=== PATIENT | female | born 1975 | race American Indian/Alaskan Native ===

== ENCOUNTER 2019-04-09 10:56 | Outpatient (CLI) | payer BC ==
[2019-04-09 11:12] VITALS: BP 127/74
[2019-04-09] MEDS ORDERED: LACTATED RINGERS 500 ML IV ONE (11:14)
[2019-04-09 11:33] LABS: Bilirubin,Urine NEG (Negative); Blood,Urine SM (Negative); Color,Urine Straw (Yellow); Mucus,Urine FEW /HPF; Protein,Urine <15 mg/dL mg/dL (Negative); RBC,Urine < 1.0 /HPF (0.0-6.0); Urobilinogen,Urine < 2.0 mg/dL (<2.0); WBC,Urine < 1.0 /HPF (0.0-6.0)
== END 2019-04-09 12:59 | disposition home or self-care (01) ==
LOC: TRG 10:56
PROVIDERS: ATTEND Obstetrics & Gynecology
DX: O26.892 Other specified pregnancy related conditions, second trimester (principal); R10.9 Unspecified abdominal pain; M54.9 Dorsalgia, unspecified; O09.522 Supervision of elderly multigravida, second trimester; Z3A.26 26 weeks gestation of pregnancy
CPT/HCPCS: 81001; 87086; J7120; 96360

== ENCOUNTER 2019-06-28 12:09 | Outpatient (CLI) | payer BC ==
[2019-06-28 12:41] LABS: Bacteria,Urine 1+ /HPF (Negative); Bilirubin,Urine NEG (Negative); Blood,Urine NEG (Negative); Color,Urine Straw (Yellow); Mucus,Urine FEW /HPF; Protein,Urine <15 mg/dL mg/dL (Negative); Urobilinogen,Urine < 2.0 mg/dL (<2.0); WBC,Urine < 1.0 /HPF (0.0-6.0)
[2019-06-28 12:44] LABS: RBC,Urine < 1.0 /HPF (0.0-6.0)
[2019-06-28] MEDS ORDERED: NITRAZINE (URINE TESTING PAPER) MC ONE (13:00)
[2019-06-28 13:21] LABS: Hematocrit 35.5 % (30.3-42.9); Hemoglobin 11.9 gm/dl (10.1-14.3); Mean Corpuscular HGB Conc 33 % (30-34); Mean Corpuscular Volume 86 fl (79-97); Platelet Count 194 K/mm3 (140-440); Red Blood Count 4.13 M/mm3 (3.65-5.03); Red Cell Distribution Width 14.7 % (13.2-15.2)
[2019-06-28 13:44] LABS: Alanine Aminotransferase 22 units/L (7-56); Uric Acid 3.9 mg/dL (3.5-7.6)
[2019-06-28 13:59] VITALS: BP 131/79
== END 2019-06-28 14:11 | disposition home or self-care (01) ==
LOC: TRG 12:09
PROVIDERS: ATTEND Obstetrics & Gynecology
DX: O47.1 False labor at or after 37 completed weeks of gestation (principal); Z3A.38 38 weeks gestation of pregnancy
CPT/HCPCS: 36415; 59025; 81001; 82565; 83615; 84450; 84460; 84550; 85027

== ENCOUNTER 2019-06-28 17:07 | Inpatient (IN) | payer BC ==
[2019-06-28] MEDS ORDERED: TERBUTALINE 1 MG/1 ML INJ SUB-Q PRN (17:37)
[2019-06-28] MEDS ORDERED: NALOXONE 0.4 MG/1 ML INJ IV PRN (17:37)
[2019-06-28] MEDS ORDERED: ePHEDrine SULFATE 50 MG/1 ML INJ IV PRN (17:37)
[2019-06-28] MEDS ORDERED: TERBUTALINE 1 MG/1 ML INJ IVP PRN (17:37)
[2019-06-28] MEDS ORDERED: ONDANSETRON 4 MG/2 ML INJ IV PRN (17:37)
[2019-06-28] MEDS ORDERED: MINERAL OIL 30 ML ORAL LIQD PO PRN (17:37)
[2019-06-28] MEDS ORDERED: BUTORPHANOL 2 MG/1 ML INJ IV PRN (17:37)
[2019-06-28] MEDS ORDERED: OXYTOCIN DRIP 30 UNITS/500 ML BAG IV SCH (18:00)
[2019-06-28] MEDS ORDERED: OXYTOCIN 20 UNIT/1000ML DRIP 20 UNITS/1,000 ML BAG IV SCH (18:00)
[2019-06-28] MEDS ORDERED: LIDOCAINE (2%) 20 MG/1 ML VIAL 20 ML MDV INFILTRATI ONE (18:00)
[2019-06-28] MEDS ORDERED: DINOPROSTONE 10 MG VAG SUPP VG ONE (18:00)
[2019-06-28] MEDS ORDERED: hydrALAZINE 20 MG/1 ML INJ IV PRN (18:27)
[2019-06-28] MEDS ORDERED: ACETAMINOPHEN 325 MG TAB PO PRN (18:27)
[2019-06-28] MEDS ORDERED: LACTATED RINGERS 1,000 ML IV SCH (19:00)
--- NOTE | 2019-06-28 20:51 | History and Physical Report ---
History of Present Illness Date of examination: 06/28/19 Chief complaint: Patient presents for IOL due to GHTN, she was noted to have elevated BP's at [facility] on 08/27/2018. She presented to the office today for LUCIO and noted to have BP's 150-160/90's therefore to meets criteria for GHTN management. History of present illness: Past History : 2 Term Births: 0 Premature Births: 0 Living Children: 0 Para: 0 Mult. Births: 0 Prev : 0 Prev. attempt? 0 Aborta: 1 Elect. Ab: 1 Spont. Ab: 0 Ectopics: 0 # 1 Delivery date: 2000 Weeks Gestation: 4 Comments: D&C Past Medical History: fibroids heart murmur, hx. not heard today on examination Past Surgical History: D&C 1999 breast implants 2007 lipo 2008 wisdom teeth 2004 Past Medical History Surgery (Non-administrator of home health): D&C 1999 breast implants 2007 lipo 2007 wisdom teeth 2004 Abnormal PAP: negative JOHANNE Exposure: negative Infertility: negative Uterine Anomaly: negative Uterine Surgery (not C/S): negative Other Gynecologic Problems: negative Family Hx: mom-diabetes, htn dad-diabetes mgm- diabetes pgm-diabetes Social Hx: . lives with works as accountant bookkeeper denies tobacco/drugs. ETOH early Infection History Hx of STD: none HIV Risk Eval: low risk Hepatitis B Risk Eval: low risk Personal hx. of genital herpes: no Partner hx. of genital herpes: no Rash, Viral, or Febrile illness since last LMP? no Varicella/Chicken Pox Status: Unknown TB Risk: no Infection History Comments: will draw varicella with IOB appt Genetic History ADVANCED MATERNAL AGE Congenital Heart Defect: Mom: no Dad: no Rosana Disease: Mom: no Dad: no Thalassemia Mom: no Dad: no Neural Tube Defect Mom: no Dad: no Down's Syndrome Mom: no Dad: no Nixon-Sachs Mom: no Dad: no Sickle Cell Disease/Trait Mom: no Dad: no Hemophilia Mom: no Dad: no Muscular Dystrophy Mom: no Dad: no Cystic Fibrosis Mom: no Dad: no [place] Chorea Mom: no Dad: no Mental Retardation Mom: no Dad: no Fragile X Mom: no Dad: no Other Genetic/Chromosomal Disorder Mom: no Dad: no Child w/other defect Mom: no Dad: no Comments/Counseling: [facility] referral sent Enviromental Exposures Enviromental Exposures Reviewed Xray Exposure: no Medication, drug, or alcohol use since LMP: no Chemical/Other Exposure: no Exposure to Cat Liter: no Hx of Parvovirus (Fifth Disease): no Occupational Exposure to Children: none Active Medications (reviewed today): None Current Allergies (reviewed today): No known allergies Past History - Obstetrical History Expected Date of Delivery: 07/11/19 Actual Gestation: 38 Week(s) 1 Day(s) : 2 Medications and Allergies Allergies Allergy/AdvReac Type Severity Reaction Status Date / Time No Known Allergies Allergy Verified 06/28/19 12:28 Active Meds: Active Medications Acetaminophen (Tylenol) 650 mg PO Q6H PRN PRN Reason: Pain, Mild (1-3) Butorphanol Tartrate (Stadol) 1 mg IV Q2H PRN PRN Reason: Pain, Moderate (4-6) Ephedrine Sulfate (Ephedrine Sulfate) 10 mg IV Q2M PRN PRN Reason: Hypotension Hydralazine HCl (Apresoline) 5 mg IV ONCE PRN PRN Reason: Hypertension Oxytocin/Sodium Chloride (Pitocin/Ns 20 Unit/1000ml Drip) 20 units in 1,000 mls @ 125 mls/hr IV DIRECT LIANE Oxytocin/Sodium Chloride (Pitocin/Ns 30 Unit/500ml) 30 units in 500 mls @ 1 mls/hr IV TITR LIANE; Protocol Lactated Ringer's (Lactated Ringers) 1,000 mls @ 125 mls/hr IV DIRECT LIANE Lactated Ringer's (Lactated Ringers) 1,000 mls @ 125 mls/hr IV DIRECT LIANE Mineral Oil (Mineral Oil) 30 ml PO QHS PRN PRN Reason: Constipation Naloxone HCl (Naloxone) 0.1 mg IV Q2MIN PRN PRN Reason: Res Rate </= 8 or 02 SAT < 92% Ondansetron HCl (Zofran) 4 mg IV Q8H PRN PRN Reason: Nausea And Vomiting Terbutaline Sulfate (Brethine) 0.25 mg SUB-Q ONCE PRN PRN Reason: Hyperstimulation/Hypertonicity Terbutaline Sulfate (Brethine) 0.25 mg IVP ONCE PRN PRN Reason: Hyperstimulation/Hypertonicity Review of Systems All systems: negative - Vital Signs Vital signs: Vital Signs Pulse Pulse Ox 104 H 94 06/28/19 18:01 06/28/19 18:01 Temp Pulse Resp BP Pulse Ox 98.3 F 90 18 123/73 97 06/28/19 19:35 06/28/19 20:46 06/28/19 19:35 06/28/19 19:35 06/28/19 20:46 - Physical Exam Breasts: Positive: deferred Cardiovascular: Regular rate Lungs: Positive: Clear to auscultation, Normal air movement Abdomen: Positive: soft. Negative: tenderness Uterus: Positive: enlarged. Negative: tender - Obstetrical FHR: category 1 Uterine Contraction Monitor Mode: External Cervical Dilatation: 0 Cervical Effacement Percentage: 0 station: -3 per RN, cervidil placed at 8p Uterine Contraction Frequency (min): 2-3 Uterine Contraction Pattern: Regular Results All other labs normal. Assessment and Plan - Patient Problems (1) 38 weeks gestation of Current Visit: Yes Status: Acute (2) Gestational hypertension without significant proteinuria in third trimester Current Visit: Yes Status: Acute Plan to address problem: Cephalic by US at [facility] on 06/26/19 with EFW 7lbs GHTN and treatment explained. Serial IOL discussed, questions were encouraged and answered She voiced understanding and agrees with POC (3) AMA (advanced maternal age) multigravida 35+ Current Visit: Yes Status: Acute Qualifiers: Trimester: third trimester Qualified Code(s): O09.523 - Supervision of elderly multigravida, third trimester
--- NOTE | 2019-06-29 06:55 | Progress Note ---
Assessment and Plan 44 y.o. @ 38 wks here for IOL d/t gHTN. Cervical exam /2. Cervidil pulled. Will allow AM care and start pitocin per protocol. Dr. Calabrese aware, will consult with Dr. Rivera. Subjective - Subjective Date of service: 06/29/19 (Pt sleeping, IOL) Principal diagnosis: IUP 38 wks @ IOL for gHTN Objective - Vital Signs Vital Signs: Vital Signs - 12hr 06/28/19 06/28/19 06/28/19 18:56 19:01 19:04 Temperature Pulse Rate 91 H 94 H 88 Respiratory Rate Blood Pressure 118/71 Blood Pressure [Right] O2 Sat by Pulse 98 97 Oximetry 06/28/19 06/28/19 06/28/19 19:06 19:11 19:16 Temperature Pulse Rate 86 92 H 95 H Respiratory Rate Blood Pressure Blood Pressure [Right] O2 Sat by Pulse 97 97 97 Oximetry 06/28/19 06/28/19 06/28/19 19:20 19:21 19:26 Temperature Pulse Rate 104 H 94 H 94 H Respiratory Rate Blood Pressure Blood Pressure [Right] O2 Sat by Pulse 83 L 97 97 Oximetry 06/28/19 06/28/19 06/28/19 19:31 19:35 19:36 Temperature 98.3 F Pulse Rate 95 H 95 H 97 H Respiratory 18 Rate Blood Pressure 123/73 Blood Pressure 123/73 [Right] O2 Sat by Pulse 97 98 98 Oximetry 06/28/19 06/28/19 06/28/19 19:41 19:46 20:36 Temperature Pulse Rate 86 88 93 H Respiratory Rate Blood Pressure Blood Pressure [Right] O2 Sat by Pulse 99 98 97 Oximetry 06/28/19 06/28/19 06/28/19 20:40 20:46 20:50 Temperature Pulse Rate 91 H 90 95 H Respiratory Rate Blood Pressure Blood Pressure [Right] O2 Sat by Pulse 98 97 97 Oximetry 06/28/19 06/28/19 06/28/19 20:55 21:00 21:06 Temperature Pulse Rate 88 93 H 92 H Respiratory Rate Blood Pressure 119/71 Blood Pressure [Right] O2 Sat by Pulse 97 97 96 Oximetry 06/28/19 06/28/19 06/28/19 21:10 21:15 21:20 Temperature Pulse Rate 86 89 86 Respiratory Rate Blood Pressure Blood Pressure [Right] O2 Sat by Pulse 96 96 97 Oximetry 06/28/19 06/28/19 06/28/19 21:25 21:30 21:35 Temperature Pulse Rate 88 89 86 Respiratory Rate Blood Pressure Blood Pressure [Right] O2 Sat by Pulse 98 96 96 Oximetry 06/28/19 06/28/19 06/28/19 21:40 21:45 21:50 Temperature Pulse Rate 87 87 87 Respiratory Rate Blood Pressure Blood Pressure [Right] O2 Sat by Pulse 97 96 96 Oximetry 06/28/19 06/28/19 06/28/19 21:55 22:00 22:01 Temperature Pulse Rate 83 87 86 Respiratory Rate Blood Pressure 104/58 Blood Pressure [Right] O2 Sat by Pulse 96 96 Oximetry 06/28/19 06/28/19 06/28/19 22:05 22:06 22:10 Temperature Pulse Rate 88 96 H 73 Respiratory Rate Blood Pressure Blood Pressure [Right] O2 Sat by Pulse 98 88 98 Oximetry 06/28/19 06/28/19 06/28/19 22:31 22:37 22:41 Temperature Pulse Rate 93 H 83 95 H Respiratory Rate Blood Pressure Blood Pressure [Right] O2 Sat by Pulse 96 97 96 Oximetry 06/28/19 06/28/19 06/28/19 22:47 22:52 22:57 Temperature Pulse Rate 83 92 H 84 Respiratory Rate Blood Pressure Blood Pressure [Right] O2 Sat by Pulse 96 96 96 Oximetry 06/28/19 06/28/19 06/28/19 23:01 23:02 23:07 Temperature Pulse Rate 81 80 88 Respiratory Rate Blood Pressure 109/59 100/56 Blood Pressure [Right] O2 Sat by Pulse 97 97 Oximetry 06/28/19 06/28/19 06/28/19 23:11 23:16 23:21 Temperature Pulse Rate 83 85 85 Respiratory Rate Blood Pressure Blood Pressure [Right] O2 Sat by Pulse 98 97 97 Oximetry 06/28/19 06/28/19 06/28/19 23:26 23:32 23:37 Temperature Pulse Rate 77 86 84 Respiratory Rate Blood Pressure Blood Pressure [Right] O2 Sat by Pulse 97 97 95 Oximetry 06/28/19 06/28/19 06/28/19 23:41 23:46 23:52 Temperature Pulse Rate 89 86 86 Respiratory Rate Blood Pressure Blood Pressure [Right] O2 Sat by Pulse 96 97 96 Oximetry 06/28/19 06/29/19 06/29/19 23:56 00:00 00:01 Temperature Pulse Rate 85 78 81 Respiratory Rate Blood Pressure 101/58 99/53 Blood Pressure [Right] O2 Sat by Pulse 97 97 Oximetry 06/29/19 06/29/19 06/29/19 00:07 00:11 00:17 Temperature Pulse Rate 80 77 83 Respiratory Rate Blood Pressure Blood Pressure [Right] O2 Sat by Pulse 96 97 97 Oximetry 06/29/19 06/29/19 06/29/19 00:22 00:26 00:31 Temperature Pulse Rate 82 80 80 Respiratory Rate Blood Pressure Blood Pressure [Right] O2 Sat by Pulse 97 97 97 Oximetry 06/29/19 06/29/19 06/29/19 00:37 00:41 00:47 Temperature Pulse Rate 83 83 81 Respiratory Rate Blood Pressure Blood Pressure [Right] O2 Sat by Pulse 96 97 98 Oximetry 06/29/19 06/29/19 06/29/19 00:52 00:57 01:00 Temperature Pulse Rate 81 89 73 Respiratory Rate Blood Pressure 113/69 Blood Pressure [Right] O2 Sat by Pulse 97 99 Oximetry 06/29/19 06/29/19 06/29/19 01:02 01:03 01:07 Temperature Pulse Rate 75 79 84 Respiratory Rate Blood Pressure Blood Pressure [Right] O2 Sat by Pulse 98 93 95 Oximetry 06/29/19 06/29/19 06/29/19 01:11 01:17 01:21 Temperature Pulse Rate 83 78 91 H Respiratory Rate Blood Pressure Blood Pressure [Right] O2 Sat by Pulse 96 97 93 Oximetry 06/29/19 06/29/19 06/29/19 01:22 01:26 01:28 Temperature Pulse Rate 80 78 74 Respiratory Rate Blood Pressure Blood Pressure [Right] O2 Sat by Pulse 98 97 93 Oximetry 06/29/19 06/29/19 06/29/19 01:31 01:35 01:37 Temperature Pulse Rate 81 74 104 H Respiratory Rate Blood Pressure Blood Pressure [Right] O2 Sat by Pulse 99 92 94 Oximetry 06/29/19 06/29/19 06/29/19 01:42 01:46 01:47 Temperature Pulse Rate 78 72 82 Respiratory Rate Blood Pressure Blood Pressure [Right] O2 Sat by Pulse 98 93 98 Oximetry 06/29/19 06/29/19 06/29/19 01:51 01:57 02:00 Temperature Pulse Rate 83 81 75 Respiratory Rate Blood Pressure 109/58 Blood Pressure [Right] O2 Sat by Pulse 97 96 Oximetry 06/29/19 06/29/19 06/29/19 02:02 02:06 02:12 Temperature Pulse Rate 77 78 96 H Respiratory Rate Blood Pressure Blood Pressure [Right] O2 Sat by Pulse 99 97 98 Oximetry 06/29/19 06/29/19 06/29/19 02:16 02:22 02:27 Temperature Pulse Rate 85 75 78 Respiratory Rate Blood Pressure Blood Pressure [Right] O2 Sat by Pulse 98 97 97 Oximetry 06/29/19 06/29/19 06/29/19 02:32 02:37 02:42 Temperature Pulse Rate 79 80 76 Respiratory Rate Blood Pressure Blood Pressure [Right] O2 Sat by Pulse 97 97 97 Oximetry 06/29/19 06/29/19 06/29/19 02:52 02:53 02:58 Temperature Pulse Rate 95 H 93 H 86 Respiratory Rate Blood Pressure Blood Pressure [Right] O2 Sat by Pulse 75 L 98 97 Oximetry 06/29/19 06/29/19 06/29/19 03:02 03:03 03:07 Temperature Pulse Rate 78 82 81 Respiratory Rate Blood Pressure 106/55 Blood Pressure [Right] O2 Sat by Pulse 98 98 Oximetry 06/29/19 06/29/19 06/29/19 03:13 03:18 03:23 Temperature Pulse Rate 90 85 86 Respiratory Rate Blood Pressure Blood Pressure [Right] O2 Sat by Pulse 97 97 99 Oximetry 06/29/19 06/29/19 06/29/19 03:28 03:33 03:38 Temperature Pulse Rate 86 76 79 Respiratory Rate Blood Pressure Blood Pressure [Right] O2 Sat by Pulse 97 98 96 Oximetry 06/29/19 06/29/19 06/29/19 03:43 03:48 03:53 Temperature Pulse Rate 80 84 82 Respiratory Rate Blood Pressure Blood Pressure [Right] O2 Sat by Pulse 98 95 96 Oximetry 06/29/19 06/29/19 06/29/19 03:58 04:00 04:03 Temperature Pulse Rate 77 78 89 Respiratory Rate Blood Pressure 122/71 Blood Pressure [Right] O2 Sat by Pulse 98 96 Oximetry 06/29/19 06/29/19 06/29/19 04:08 04:13 04:18 Temperature Pulse Rate 84 77 81 Respiratory Rate Blood Pressure Blood Pressure [Right] O2 Sat by Pulse 96 96 96 Oximetry 06/29/19 06/29/19 06/29/19 04:23 04:28 04:33 Temperature Pulse Rate 98 H 79 80 Respiratory Rate Blood Pressure Blood Pressure [Right] O2 Sat by Pulse 97 96 96 Oximetry 06/29/19 06/29/19 06/29/19 04:38 04:43 04:48 Temperature Pulse Rate 80 78 79 Respiratory Rate Blood Pressure Blood Pressure [Right] O2 Sat by Pulse 96 96 96 Oximetry 06/29/19 06/29/19 06/29/19 04:53 04:58 05:01 Temperature Pulse Rate 78 81 79 Respiratory Rate Blood Pressure 106/62 Blood Pressure [Right] O2 Sat by Pulse 96 96 Oximetry 06/29/19 06/29/19 06/29/19 05:03 05:08 05:13 Temperature Pulse Rate 86 80 83 Respiratory Rate Blood Pressure Blood Pressure [Right] O2 Sat by Pulse 97 97 99 Oximetry 06/29/19 06/29/19 06/29/19 05:18 05:23 05:27 Temperature Pulse Rate 75 78 85 Respiratory Rate Blood Pressure Blood Pressure [Right] O2 Sat by Pulse 97 98 92 Oximetry 06/29/19 06/29/19 06/29/19 05:28 05:33 05:38 Temperature Pulse Rate 78 79 85 Respiratory Rate Blood Pressure Blood Pressure [Right] O2 Sat by Pulse 98 97 100 Oximetry 06/29/19 06/29/19 06/29/19 05:43 05:48 05:53 Temperature Pulse Rate 73 80 79 Respiratory Rate Blood Pressure Blood Pressure [Right] O2 Sat by Pulse 97 96 96 Oximetry 06/29/19 06/29/19 06/29/19 05:58 06:01 06:03 Temperature Pulse Rate 87 77 76 Respiratory Rate Blood Pressure 111/64 Blood Pressure [Right] O2 Sat by Pulse 95 96 Oximetry 06/29/19 06/29/19 06/29/19 06:08 06:13 06:17 Temperature Pulse Rate 81 83 79 Respiratory Rate Blood Pressure Blood Pressure [Right] O2 Sat by Pulse 96 97 97 Oximetry 06/29/19 06/29/19 06/29/19 06:23 06:28 06:33 Temperature Pulse Rate 81 77 84 Respiratory Rate Blood Pressure Blood Pressure [Right] O2 Sat by Pulse 97 97 96 Oximetry 06/29/19 06/29/19 06/29/19 06:38 06:43 06:48 Temperature Pulse Rate 83 84 81 Respiratory Rate Blood Pressure Blood Pressure [Right] O2 Sat by Pulse 96 98 100 Oximetry 06/29/19 06/29/19 06:49 06:53 Temperature Pulse Rate 83 90 Respiratory Rate Blood Pressure Blood Pressure [Right] O2 Sat by Pulse 88 98 Oximetry - Exam Breasts: deferred Cardiovascular: Regular rate Lungs: Normal air movement Abdomen: Present: normal appearance Vulva: both: normal FHR: category 1 Cervical Dilatation: 1 Cervical Effacement Percentage: 70 station: -2 Uterine Contraction Pattern: Irregular Uterine Tone Measurement Phase: Resting Uterine Contraction Intensity: Mild Extremities: edema (+2 to lower extremities) Deep Tendon Reflex Grade: Normal +2 - Labs Labs: Laboratory Results - last 24 hr 06/28/19 06/28/19 19:16 19:16 Syphilis IgG Antibody Non-reactive Blood Type A POSITIVE Antibody Screen Negative
[2019-06-29] MEDS: OXYTOCIN DRIP 30 UNITS/500 ML BAG IV SCH (09:56)
[2019-06-29] MEDS: LACTATED RINGERS 1,000 ML IV SCH ×2 (10:05→19:49)
--- NOTE | 2019-06-29 12:31 | Progress Note ---
Assessment and Plan 44 y.o. IOL @ 38 wks for gHTN. Pt feeling some ctxs. Cervical exam /2. Pitocin at 12ml/hr. Continue IOL. Pitocin per protocol. Subjective - Subjective Date of service: 06/29/19 (Pt doing well) Principal diagnosis: IUP 38 wks @ IOL for gHTN Objective - Vital Signs Vital Signs: Vital Signs - 12hr 06/29/19 06/29/19 06/29/19 00:31 00:37 00:41 Pulse Rate 80 83 83 Blood Pressure O2 Sat by Pulse 97 96 97 Oximetry 06/29/19 06/29/19 06/29/19 00:47 00:52 00:57 Pulse Rate 81 81 89 Blood Pressure O2 Sat by Pulse 98 97 99 Oximetry 06/29/19 06/29/19 06/29/19 01:00 01:02 01:03 Pulse Rate 73 75 79 Blood Pressure 113/69 O2 Sat by Pulse 98 93 Oximetry 06/29/19 06/29/19 06/29/19 01:07 01:11 01:17 Pulse Rate 84 83 78 Blood Pressure O2 Sat by Pulse 95 96 97 Oximetry 06/29/19 06/29/19 06/29/19 01:21 01:22 01:26 Pulse Rate 91 H 80 78 Blood Pressure O2 Sat by Pulse 93 98 97 Oximetry 06/29/19 06/29/19 06/29/19 01:28 01:31 01:35 Pulse Rate 74 81 74 Blood Pressure O2 Sat by Pulse 93 99 92 Oximetry 06/29/19 06/29/19 06/29/19 01:37 01:42 01:46 Pulse Rate 104 H 78 72 Blood Pressure O2 Sat by Pulse 94 98 93 Oximetry 06/29/19 06/29/19 06/29/19 01:47 01:51 01:57 Pulse Rate 82 83 81 Blood Pressure O2 Sat by Pulse 98 97 96 Oximetry 06/29/19 06/29/19 06/29/19 02:00 02:02 02:06 Pulse Rate 75 77 78 Blood Pressure 109/58 O2 Sat by Pulse 99 97 Oximetry 06/29/19 06/29/19 06/29/19 02:12 02:16 02:22 Pulse Rate 96 H 85 75 Blood Pressure O2 Sat by Pulse 98 98 97 Oximetry 1206/29/19 06/29/19 02:27 02:32 02:37 Pulse Rate 78 79 80 Blood Pressure O2 Sat by Pulse 97 97 97 Oximetry 06/29/19 06/29/19 06/29/19 02:42 02:52 02:53 Pulse Rate 76 95 H 93 H Blood Pressure O2 Sat by Pulse 97 75 L 98 Oximetry 06/29/19 06/29/19 06/29/19 02:58 03:02 03:03 Pulse Rate 86 78 82 Blood Pressure 106/55 O2 Sat by Pulse 97 98 Oximetry 06/29/19 06/29/19 06/29/19 03:07 03:13 03:18 Pulse Rate 81 90 85 Blood Pressure O2 Sat by Pulse 98 97 97 Oximetry 06/29/19 06/29/19 06/29/19 03:23 03:28 03:33 Pulse Rate 86 86 76 Blood Pressure O2 Sat by Pulse 99 97 98 Oximetry 06/29/19 06/29/19 06/29/19 03:38 03:43 03:48 Pulse Rate 79 80 84 Blood Pressure O2 Sat by Pulse 96 98 95 Oximetry 06/29/19 06/29/19 06/29/19 03:53 03:58 04:00 Pulse Rate 82 77 78 Blood Pressure 122/71 O2 Sat by Pulse 96 98 Oximetry 06/29/19 06/29/19 06/29/19 04:03 04:08 04:13 Pulse Rate 89 84 77 Blood Pressure O2 Sat by Pulse 96 96 96 Oximetry 06/29/19 06/29/19 06/29/19 04:18 04:23 04:28 Pulse Rate 81 98 H 79 Blood Pressure O2 Sat by Pulse 96 97 96 Oximetry 06/29/19 06/29/19 06/29/19 04:33 04:38 04:43 Pulse Rate 80 80 78 Blood Pressure O2 Sat by Pulse 96 96 96 Oximetry 06/29/19 06/29/19 06/29/19 04:48 04:53 04:58 Pulse Rate 79 78 81 Blood Pressure O2 Sat by Pulse 96 96 96 Oximetry 06/29/19 06/29/19 06/29/19 05:01 05:03 05:08 Pulse Rate 79 86 80 Blood Pressure 106/62 O2 Sat by Pulse 97 97 Oximetry 06/29/19 06/29/19 06/29/19 05:13 05:18 05:23 Pulse Rate 83 75 78 Blood Pressure O2 Sat by Pulse 99 97 98 Oximetry 06/29/19 06/29/19 06/29/19 05:27 05:28 05:33 Pulse Rate 85 78 79 Blood Pressure O2 Sat by Pulse 92 98 97 Oximetry 06/29/19 06/29/19 06/29/19 05:38 05:43 05:48 Pulse Rate 85 73 80 Blood Pressure O2 Sat by Pulse 100 97 96 Oximetry 06/29/19 06/29/19 06/29/19 05:53 05:58 06:01 Pulse Rate 79 87 77 Blood Pressure 111/64 O2 Sat by Pulse 96 95 Oximetry 06/29/19 06/29/19 06/29/19 06:03 06:08 06:13 Pulse Rate 76 81 83 Blood Pressure O2 Sat by Pulse 96 96 97 Oximetry 06/29/19 06/29/19 06/29/19 06:17 06:23 06:28 Pulse Rate 79 81 77 Blood Pressure O2 Sat by Pulse 97 97 97 Oximetry 06/29/19 06/29/19 06/29/19 06:33 06:38 06:43 Pulse Rate 84 83 84 Blood Pressure O2 Sat by Pulse 96 96 98 Oximetry 06/29/19 06/29/19 06/29/19 06:48 06:49 06:53 Pulse Rate 81 83 90 Blood Pressure O2 Sat by Pulse 100 88 98 Oximetry 06/29/19 06/29/19 06/29/19 06:58 07:01 07:03 Pulse Rate 80 80 76 Blood Pressure 118/74 O2 Sat by Pulse 97 99 Oximetry 06/29/19 06/29/19 06/29/19 07:08 07:13 07:18 Pulse Rate 82 85 85 Blood Pressure O2 Sat by Pulse 97 97 97 Oximetry 06/29/19 06/29/19 06/29/19 07:23 07:28 07:33 Pulse Rate 86 86 87 Blood Pressure O2 Sat by Pulse 99 96 99 Oximetry 06/29/19 06/29/19 06/29/19 07:38 07:43 07:46 Pulse Rate 82 85 91 H Blood Pressure O2 Sat by Pulse 99 97 91 Oximetry 06/29/19 06/29/19 06/29/19 07:48 07:53 08:16 Pulse Rate 85 90 88 Blood Pressure 123/76 O2 Sat by Pulse 97 98 Oximetry 06/29/19 06/29/19 06/29/19 10:18 10:19 10:24 Pulse Rate 93 H 98 H 96 H Blood Pressure 125/73 O2 Sat by Pulse 95 97 Oximetry 06/29/19 06/29/19 06/29/19 10:29 10:34 10:39 Pulse Rate 91 H 93 H 94 H Blood Pressure O2 Sat by Pulse 97 95 95 Oximetry 06/29/19 06/29/19 06/29/19 10:44 10:49 10:54 Pulse Rate 103 H 102 H 93 H Blood Pressure O2 Sat by Pulse 96 96 95 Oximetry 06/29/19 06/29/19 06/29/19 10:59 11:04 11:09 Pulse Rate 85 91 H 84 Blood Pressure O2 Sat by Pulse 95 95 95 Oximetry 06/29/19 06/29/19 06/29/19 11:14 11:15 11:19 Pulse Rate 87 93 H 91 H Blood Pressure O2 Sat by Pulse 95 94 95 Oximetry 06/29/19 06/29/19 06/29/19 11:24 11:29 11:34 Pulse Rate 94 H 93 H 99 H Blood Pressure O2 Sat by Pulse 97 96 96 Oximetry 06/29/19 06/29/19 06/29/19 11:39 11:44 11:49 Pulse Rate 94 H 92 H 90 Blood Pressure O2 Sat by Pulse 96 96 96 Oximetry 06/29/19 06/29/19 06/29/19 11:54 11:56 11:59 Pulse Rate 95 H 90 92 H Blood Pressure 127/74 O2 Sat by Pulse 95 96 Oximetry 06/29/19 06/29/19 06/29/19 12:04 12:09 12:14 Pulse Rate 92 H 95 H 94 H Blood Pressure O2 Sat by Pulse 96 97 97 Oximetry 06/29/19 06/29/19 06/29/19 12:18 12:19 12:24 Pulse Rate 91 H 89 90 Blood Pressure 120/77 O2 Sat by Pulse 96 95 Oximetry - Exam Abdomen: Present: normal appearance Vulva: both: normal Uterus: Present: normal FHR: category 1 Uterine Contraction Monitor Mode: External Cervical Dilatation: 1 Cervical Effacement Percentage: 70 station: -2 Uterine Contraction Pattern: Regular Uterine Tone Measurement Phase: Resting Uterine Contraction Intensity: Moderate Extremities: normal Deep Tendon Reflex Grade: Normal +2 - Labs Labs: Laboratory Results - last 24 hr 06/28/19 06/28/19 19:16 19:16 Syphilis IgG Antibody Non-reactive Blood Type A POSITIVE Antibody Screen Negative
--- NOTE | 2019-06-29 16:17 | Progress Note ---
Assessment and Plan A" 44 y.o. @ 38+ wks, IOL due to gHTN. Pt would like another cervidil placed. P:Turn off pitocin at 5pm. Let pt eat dinner. Addtional cervidil after dinner. Subjective - Subjective Date of service: 06/29/19 (Feeling well. Not really feeling a lot of contractions. ) Principal diagnosis: IUP 38 wks @ IOL for gHTN Objective - Vital Signs Vital Signs: Vital Signs - 12hr 06/29/19 06/29/19 06/29/19 04:13 04:18 04:23 Temperature Pulse Rate 77 81 98 H Blood Pressure O2 Sat by Pulse 96 96 97 Oximetry 06/29/19 06/29/19 06/29/19 04:28 04:33 04:38 Temperature Pulse Rate 79 80 80 Blood Pressure O2 Sat by Pulse 96 96 96 Oximetry 06/29/19 06/29/19 06/29/19 04:43 04:48 04:53 Temperature Pulse Rate 78 79 78 Blood Pressure O2 Sat by Pulse 96 96 96 Oximetry 06/29/19 06/29/19 06/29/19 04:58 05:01 05:03 Temperature Pulse Rate 81 79 86 Blood Pressure 106/62 O2 Sat by Pulse 96 97 Oximetry 06/29/19 06/29/19 06/29/19 05:08 05:13 05:18 Temperature Pulse Rate 80 83 75 Blood Pressure O2 Sat by Pulse 97 99 97 Oximetry 06/29/19 06/29/19 06/29/19 05:23 05:27 05:28 Temperature Pulse Rate 78 85 78 Blood Pressure O2 Sat by Pulse 98 92 98 Oximetry 06/29/19 06/29/19 06/29/19 05:33 05:38 05:43 Temperature Pulse Rate 79 85 73 Blood Pressure O2 Sat by Pulse 97 100 97 Oximetry 06/29/19 06/29/19 06/29/19 05:48 05:53 05:58 Temperature Pulse Rate 80 79 87 Blood Pressure O2 Sat by Pulse 96 96 95 Oximetry 06/29/19 06/29/19 06/29/19 06:01 06:03 06:08 Temperature Pulse Rate 77 76 81 Blood Pressure 111/64 O2 Sat by Pulse 96 96 Oximetry 06/29/19 06/29/19 06/29/19 06:13 06:17 06:23 Temperature Pulse Rate 83 79 81 Blood Pressure O2 Sat by Pulse 97 97 97 Oximetry 06/29/19 06/29/19 06/29/19 06:28 06:33 06:38 Temperature Pulse Rate 77 84 83 Blood Pressure O2 Sat by Pulse 97 96 96 Oximetry 06/29/19 06/29/19 06/29/19 06:43 06:48 06:49 Temperature Pulse Rate 84 81 83 Blood Pressure O2 Sat by Pulse 98 100 88 Oximetry 06/29/19 06/29/19 06/29/19 06:53 06:58 07:01 Temperature Pulse Rate 90 80 80 Blood Pressure 118/74 O2 Sat by Pulse 98 97 Oximetry 06/29/19 06/29/19 06/29/19 07:03 07:08 07:13 Temperature Pulse Rate 76 82 85 Blood Pressure O2 Sat by Pulse 99 97 97 Oximetry 06/29/19 06/29/19 06/29/19 07:18 07:23 07:28 Temperature Pulse Rate 85 86 86 Blood Pressure O2 Sat by Pulse 97 99 96 Oximetry 06/29/19 06/29/19 06/29/19 07:33 07:38 07:43 Temperature Pulse Rate 87 82 85 Blood Pressure O2 Sat by Pulse 99 99 97 Oximetry 06/29/19 06/29/19 06/29/19 07:46 07:48 07:53 Temperature Pulse Rate 91 H 85 90 Blood Pressure O2 Sat by Pulse 91 97 98 Oximetry 06/29/19 06/29/19 06/29/19 08:16 09:00 10:18 Temperature 98.3 F Pulse Rate 88 93 H Blood Pressure 123/76 125/73 O2 Sat by Pulse Oximetry 06/29/19 06/29/19 06/29/19 10:19 10:24 10:29 Temperature Pulse Rate 98 H 96 H 91 H Blood Pressure O2 Sat by Pulse 95 97 97 Oximetry 06/29/19 06/29/19 06/29/19 10:34 10:39 10:44 Temperature Pulse Rate 93 H 94 H 103 H Blood Pressure O2 Sat by Pulse 95 95 96 Oximetry 06/29/19 06/29/19 06/29/19 10:49 10:54 10:59 Temperature Pulse Rate 102 H 93 H 85 Blood Pressure O2 Sat by Pulse 96 95 95 Oximetry 06/29/19 06/29/19 06/29/19 11:04 11:09 11:14 Temperature Pulse Rate 91 H 84 87 Blood Pressure O2 Sat by Pulse 95 95 95 Oximetry 06/29/19 06/29/19 06/29/19 11:15 11:19 11:24 Temperature Pulse Rate 93 H 91 H 94 H Blood Pressure O2 Sat by Pulse 94 95 97 Oximetry 06/29/19 06/29/19 06/29/19 11:29 11:34 11:39 Temperature Pulse Rate 93 H 99 H 94 H Blood Pressure O2 Sat by Pulse 96 96 96 Oximetry 06/29/19 06/29/19 06/29/19 11:44 11:49 11:54 Temperature Pulse Rate 92 H 90 95 H Blood Pressure O2 Sat by Pulse 96 96 95 Oximetry 06/29/19 06/29/19 06/29/19 11:56 11:59 12:04 Temperature Pulse Rate 90 92 H 92 H Blood Pressure 127/74 O2 Sat by Pulse 96 96 Oximetry 06/29/19 06/29/19 06/29/19 12:09 12:14 12:18 Temperature Pulse Rate 95 H 94 H 91 H Blood Pressure 120/77 O2 Sat by Pulse 97 97 Oximetry 06/29/19 06/29/19 06/29/19 12:19 12:24 12:29 Temperature Pulse Rate 89 90 98 H Blood Pressure O2 Sat by Pulse 96 95 95 Oximetry 06/29/19 06/29/19 06/29/19 12:34 12:39 12:44 Temperature Pulse Rate 92 H 94 H 95 H Blood Pressure O2 Sat by Pulse 95 95 96 Oximetry 06/29/19 06/29/19 06/29/19 12:49 12:54 12:59 Temperature Pulse Rate 96 H 91 H 94 H Blood Pressure O2 Sat by Pulse 96 96 96 Oximetry 06/29/19 06/29/19 06/29/19 13:04 13:09 13:12 Temperature 98.3 F Pulse Rate 94 H 92 H Blood Pressure O2 Sat by Pulse 96 96 Oximetry 06/29/19 06/29/19 06/29/19 13:14 13:18 13:19 Temperature Pulse Rate 98 H 90 100 H Blood Pressure 126/72 O2 Sat by Pulse 95 95 Oximetry 06/29/19 06/29/19 06/29/19 13:24 13:29 13:34 Temperature Pulse Rate 94 H 94 H 97 H Blood Pressure O2 Sat by Pulse 96 96 95 Oximetry 06/29/19 06/29/19 06/29/19 13:39 13:44 13:45 Temperature Pulse Rate 88 97 H 103 H Blood Pressure O2 Sat by Pulse 95 95 94 Oximetry 06/29/19 06/29/19 06/29/19 13:49 13:54 13:56 Temperature Pulse Rate 93 H 83 82 Blood Pressure O2 Sat by Pulse 95 95 94 Oximetry 06/29/19 06/29/19 06/29/19 13:59 14:04 14:09 Temperature Pulse Rate 84 92 H 82 Blood Pressure O2 Sat by Pulse 95 96 97 Oximetry 06/29/19 06/29/19 06/29/19 14:14 14:19 14:24 Temperature Pulse Rate 86 87 90 Blood Pressure 124/74 O2 Sat by Pulse 95 96 96 Oximetry 06/29/19 06/29/19 06/29/19 14:29 14:48 14:53 Temperature Pulse Rate 97 H 89 91 H Blood Pressure O2 Sat by Pulse 96 95 95 Oximetry 06/29/19 06/29/19 06/29/19 14:58 15:03 15:08 Temperature Pulse Rate 86 85 87 Blood Pressure O2 Sat by Pulse 95 95 97 Oximetry 06/29/19 06/29/19 06/29/19 15:13 15:18 15:23 Temperature Pulse Rate 89 85 81 Blood Pressure 130/73 O2 Sat by Pulse 96 96 95 Oximetry 06/29/19 06/29/19 06/29/19 15:25 15:28 15:32 Temperature Pulse Rate 97 H 84 89 Blood Pressure O2 Sat by Pulse 94 95 94 Oximetry 06/29/19 06/29/19 06/29/19 15:33 15:38 15:43 Temperature Pulse Rate 85 88 90 Blood Pressure O2 Sat by Pulse 95 96 97 Oximetry 06/29/19 06/29/19 06/29/19 15:48 15:53 15:58 Temperature Pulse Rate 90 94 H 91 H Blood Pressure O2 Sat by Pulse 96 96 96 Oximetry 06/29/19 06/29/19 16:03 16:08 Temperature Pulse Rate 89 88 Blood Pressure O2 Sat by Pulse 96 96 Oximetry - Exam Breasts: deferred Cardiovascular: Regular rate Lungs: Normal air movement FHR: category 1 Uterine Contraction Monitor Mode: External Uterine Contraction Pattern: Regular Uterine Tone Measurement Phase: Resting Uterine Contraction Intensity: Moderate Extremities: edema Deep Tendon Reflex Grade: Normal +2 (Denies URBINA, blurred vision, upper abdominal pain.) - Labs Labs: Laboratory Results - last 24 hr 06/28/19 06/28/19 19:16 19:16 Syphilis IgG Antibody Non-reactive Blood Type A POSITIVE Antibody Screen Negative
[2019-06-29] MEDS ORDERED: DINOPROSTONE 10 MG VAG SUPP VG ONE (18:45)
--- NOTE | 2019-06-29 19:37 | Progress Note ---
Assessment and Plan A: 44 y.o. 38+ wks for IOL for gHTN. Cervidil placed @ 1930pm. P: Continue to cervidil protocol for IOL. Continue to monitor maternal and status. Subjective - Subjective Date of service: 06/29/19 (Pt states doing well. ) Principal diagnosis: IUP 38 wks @ IOL for gHTN Objective - Vital Signs Vital Signs: Vital Signs - 12hr 06/29/19 06/29/19 06/29/19 07:38 07:43 07:46 Temperature Pulse Rate 82 85 91 H Blood Pressure O2 Sat by Pulse 99 97 91 Oximetry 06/29/19 06/29/19 06/29/19 07:48 07:53 08:16 Temperature Pulse Rate 85 90 88 Blood Pressure 123/76 O2 Sat by Pulse 97 98 Oximetry 06/29/19 06/29/19 06/29/19 09:00 10:18 10:19 Temperature 98.3 F Pulse Rate 93 H 98 H Blood Pressure 125/73 O2 Sat by Pulse 95 Oximetry 06/29/19 06/29/19 06/29/19 10:24 10:29 10:34 Temperature Pulse Rate 96 H 91 H 93 H Blood Pressure O2 Sat by Pulse 97 97 95 Oximetry 06/29/19 06/29/19 06/29/19 10:39 10:44 10:49 Temperature Pulse Rate 94 H 103 H 102 H Blood Pressure O2 Sat by Pulse 95 96 96 Oximetry 06/29/19 06/29/19 06/29/19 10:54 10:59 11:04 Temperature Pulse Rate 93 H 85 91 H Blood Pressure O2 Sat by Pulse 95 95 95 Oximetry 06/29/19 06/29/19 06/29/19 11:09 11:14 11:15 Temperature Pulse Rate 84 87 93 H Blood Pressure O2 Sat by Pulse 95 95 94 Oximetry 06/29/19 06/29/19 06/29/19 11:19 11:24 11:29 Temperature Pulse Rate 91 H 94 H 93 H Blood Pressure O2 Sat by Pulse 95 97 96 Oximetry 06/29/19 06/29/19 06/29/19 11:34 11:39 11:44 Temperature Pulse Rate 99 H 94 H 92 H Blood Pressure O2 Sat by Pulse 96 96 96 Oximetry 06/29/19 06/29/19 06/29/19 11:49 11:54 11:56 Temperature Pulse Rate 90 95 H 90 Blood Pressure 127/74 O2 Sat by Pulse 96 95 Oximetry 06/29/19 06/29/19 06/29/19 11:59 12:04 12:09 Temperature Pulse Rate 92 H 92 H 95 H Blood Pressure O2 Sat by Pulse 96 96 97 Oximetry 06/29/19 06/29/19 06/29/19 12:14 12:18 12:19 Temperature Pulse Rate 94 H 91 H 89 Blood Pressure 120/77 O2 Sat by Pulse 97 96 Oximetry 06/29/19 06/29/19 06/29/19 12:24 12:29 12:34 Temperature Pulse Rate 90 98 H 92 H Blood Pressure O2 Sat by Pulse 95 95 95 Oximetry 06/29/19 06/29/19 06/29/19 12:39 12:44 12:49 Temperature Pulse Rate 94 H 95 H 96 H Blood Pressure O2 Sat by Pulse 95 96 96 Oximetry 06/29/19 06/29/19 06/29/19 12:54 12:59 13:04 Temperature Pulse Rate 91 H 94 H 94 H Blood Pressure O2 Sat by Pulse 96 96 96 Oximetry 06/29/19 06/29/19 06/29/19 13:09 13:12 13:14 Temperature 98.3 F Pulse Rate 92 H 98 H Blood Pressure O2 Sat by Pulse 96 95 Oximetry 06/29/19 06/29/19 06/29/19 13:18 13:19 13:24 Temperature Pulse Rate 90 100 H 94 H Blood Pressure 126/72 O2 Sat by Pulse 95 96 Oximetry 06/29/19 06/29/19 06/29/19 13:29 13:34 13:39 Temperature Pulse Rate 94 H 97 H 88 Blood Pressure O2 Sat by Pulse 96 95 95 Oximetry 06/29/19 06/29/19 06/29/19 13:44 13:45 13:49 Temperature Pulse Rate 97 H 103 H 93 H Blood Pressure O2 Sat by Pulse 95 94 95 Oximetry 06/29/19 06/29/19 06/29/19 13:54 13:56 13:59 Temperature Pulse Rate 83 82 84 Blood Pressure O2 Sat by Pulse 95 94 95 Oximetry 06/29/19 06/29/19 06/29/19 14:04 14:09 14:14 Temperature Pulse Rate 92 H 82 86 Blood Pressure O2 Sat by Pulse 96 97 95 Oximetry 06/29/19 06/29/19 06/29/19 14:19 14:24 14:29 Temperature Pulse Rate 87 90 97 H Blood Pressure 124/74 O2 Sat by Pulse 96 96 96 Oximetry 06/29/19 06/29/19 06/29/19 14:48 14:53 14:58 Temperature Pulse Rate 89 91 H 86 Blood Pressure O2 Sat by Pulse 95 95 95 Oximetry 06/29/19 06/29/19 06/29/19 15:03 15:08 15:13 Temperature Pulse Rate 85 87 89 Blood Pressure O2 Sat by Pulse 95 97 96 Oximetry 06/29/19 06/29/19 06/29/19 15:18 15:23 15:25 Temperature Pulse Rate 85 81 97 H Blood Pressure 130/73 O2 Sat by Pulse 96 95 94 Oximetry 06/29/19 06/29/19 06/29/19 15:28 15:32 15:33 Temperature Pulse Rate 84 89 85 Blood Pressure O2 Sat by Pulse 95 94 95 Oximetry 06/29/19 06/29/19 06/29/19 15:38 15:43 15:48 Temperature Pulse Rate 88 90 90 Blood Pressure O2 Sat by Pulse 96 97 96 Oximetry 06/29/19 06/29/19 06/29/19 15:53 15:58 16:03 Temperature Pulse Rate 94 H 91 H 89 Blood Pressure O2 Sat by Pulse 96 96 96 Oximetry 06/29/19 06/29/19 06/29/19 16:08 16:13 16:18 Temperature Pulse Rate 88 88 85 Blood Pressure 133/77 O2 Sat by Pulse 96 95 97 Oximetry 06/29/19 06/29/19 06/29/19 16:23 16:28 16:33 Temperature Pulse Rate 89 97 H 100 H Blood Pressure O2 Sat by Pulse 96 97 96 Oximetry 06/29/19 06/29/19 06/29/19 16:38 16:43 16:48 Temperature Pulse Rate 94 H 93 H 87 Blood Pressure O2 Sat by Pulse 96 97 97 Oximetry 06/29/19 06/29/19 06/29/19 16:53 16:58 17:03 Temperature Pulse Rate 90 94 H 95 H Blood Pressure O2 Sat by Pulse 96 95 96 Oximetry 06/29/19 06/29/19 06/29/19 17:08 17:13 17:18 Temperature Pulse Rate 92 H 97 H 101 H Blood Pressure O2 Sat by Pulse 97 96 97 Oximetry 06/29/19 06/29/19 06/29/19 17:19 17:23 17:25 Temperature Pulse Rate 96 H 98 H 96 H Blood Pressure 142/78 O2 Sat by Pulse 97 90 Oximetry 06/29/19 06/29/19 06/29/19 17:38 17:43 17:48 Temperature Pulse Rate 107 H 99 H 98 H Blood Pressure O2 Sat by Pulse 98 96 96 Oximetry 06/29/19 06/29/19 06/29/19 17:53 17:58 18:03 Temperature Pulse Rate 104 H 101 H 98 H Blood Pressure O2 Sat by Pulse 97 97 98 Oximetry 06/29/19 06/29/19 06/29/19 18:08 18:13 18:18 Temperature Pulse Rate 94 H 95 H 95 H Blood Pressure 129/70 O2 Sat by Pulse 97 96 97 Oximetry 06/29/19 06/29/19 06/29/19 18:23 18:28 18:33 Temperature Pulse Rate 99 H 102 H 98 H Blood Pressure O2 Sat by Pulse 96 97 96 Oximetry 06/29/19 06/29/19 06/29/19 18:38 18:43 18:48 Temperature Pulse Rate 105 H 98 H 105 H Blood Pressure O2 Sat by Pulse 96 97 97 Oximetry 06/29/19 06/29/19 06/29/19 18:53 18:58 19:03 Temperature Pulse Rate 94 H 88 94 H Blood Pressure O2 Sat by Pulse 97 96 96 Oximetry 06/29/19 06/29/19 06/29/19 19:08 19:13 19:18 Temperature Pulse Rate 90 93 H 95 H Blood Pressure 115/58 O2 Sat by Pulse 96 96 97 Oximetry 06/29/19 19:20 Temperature Pulse Rate 93 H Blood Pressure 105/56 O2 Sat by Pulse Oximetry - Exam Breasts: deferred Abdomen: Present: normal appearance FHR: category 1 Uterine Contraction Monitor Mode: External Uterine Contraction Pattern: Irregular Uterine Tone Measurement Phase: Resting Uterine Contraction Intensity: Moderate Extremities: normal Deep Tendon Reflex Grade: Normal +2 - Labs Labs: Laboratory Results - last 24 hr 06/28/19 06/28/19 19:16 19:16 Syphilis IgG Antibody Non-reactive Blood Type A POSITIVE Antibody Screen Negative
[2019-06-29] MEDS ORDERED: ZOLPIDEM 5 MG TAB PO PRN (19:44)
[2019-06-30] MEDS: LACTATED RINGERS 1,000 ML IV SCH ×2 (05:46→17:26)
--- NOTE | 2019-06-30 07:55 | Progress Note ---
Assessment and Plan patient resting, c/o feeling some ctx this morning. cervidil removed - SVE /-2, old blood noted during exam. Plan discussed for patient to do AM care, breakfast and then will start pitocin to continue IOL. EFW ~7lbs, pelvis feels adequate although difficult to fully assess d/t pt's discomforts and anxiety with SVE. VSSAF. no s/s pre-e. - Patient Problems (1) 38 weeks gestation of Current Visit: Yes Status: Acute (2) AMA (advanced maternal age) multigravida 35+ Current Visit: Yes Status: Acute Qualifiers: Trimester: third trimester Qualified Code(s): O09.523 - Supervision of elderly multigravida, third trimester (3) Gestational hypertension without significant proteinuria in third trimester Current Visit: Yes Status: Acute Plan to address problem: IOL monitor b/p's closely monitor for s/s pre-e or worsening GHTN Subjective - Subjective Date of service: 06/30/19 Principal diagnosis: IUP 38+3 wks @ IOL for gHTN Patient reports: movement normal, contractions, no loss of fluid, no vaginal bleeding Objective - Vital Signs Vital Signs: Vital Signs - 12hr 06/29/19 06/29/19 06/29/19 20:18 21:19 23:20 Temperature Pulse Rate 93 H 88 89 Respiratory Rate Blood Pressure 111/56 108/57 118/71 06/30/19 06/30/19 06/30/19 00:00 00:18 01:19 Temperature 98.1 F Pulse Rate 96 H 88 Respiratory 16 Rate Blood Pressure 137/74 131/62 06/30/19 06/30/19 06/30/19 02:18 03:19 04:18 Temperature Pulse Rate 97 H 91 H 93 H Respiratory Rate Blood Pressure 129/67 124/57 131/62 06/30/19 06/30/19 07:18 07:50 Temperature 98.4 F Pulse Rate 93 H Respiratory 16 Rate Blood Pressure 105/83 - Exam Breasts: normal Cardiovascular: Regular rate Lungs: Normal air movement Abdomen: Present: soft Vulva: both: normal Uterus: Present: normal, fundal height above umbilicus FHR: auscultation normal, category 1 Uterine Contraction Monitor Mode: External Cervical Dilatation: 1 Cervical Effacement Percentage: 40 station: -2 Uterine Contraction Frequency (min): 3-5 Uterine Contraction Duration: 60 Uterine Contraction Pattern: Irregular Uterine Tone Measurement Phase: Resting Uterine Contraction Intensity: Mild Extremities: normal Deep Tendon Reflex Grade: Normal +2
[2019-06-30] MEDS: OXYTOCIN DRIP 30 UNITS/500 ML BAG IV SCH (10:33)
--- NOTE | 2019-06-30 14:53 | Progress Note ---
Assessment and Plan patient hurting with ctx, requesting pain medication. SVE now 2-3/-1 with head well applied to cervix. discussed pain medication option, patient would like IV sedation at this time but does plan on getting an epidural. Continue current management. - Patient Problems (1) 38 weeks gestation of Current Visit: Yes Status: Acute (2) AMA (advanced maternal age) multigravida 35+ Current Visit: Yes Status: Acute Qualifiers: Trimester: third trimester Qualified Code(s): O09.523 - Supervision of elderly multigravida, third trimester (3) Gestational hypertension without significant proteinuria in third trimester Current Visit: Yes Status: Acute Plan to address problem: IOL monitor b/p's closely monitor for s/s pre-e or worsening GHTN Subjective - Subjective Date of service: 06/30/19 Principal diagnosis: IUP 38+3 wks @ IOL for gHTN Patient reports: movement normal, contractions, no loss of fluid, no vaginal bleeding Objective - Vital Signs Vital Signs: Vital Signs - 12hr 06/30/19 06/30/19 06/30/19 03:19 04:18 07:18 Temperature Pulse Rate 91 H 93 H 93 H Respiratory Rate Blood Pressure 124/57 131/62 105/83 06/30/19 06/30/19 06/30/19 07:50 08:11 10:38 Temperature 98.4 F Pulse Rate 94 H 102 H Respiratory 16 Rate Blood Pressure 121/65 129/61 06/30/19 06/30/19 06/30/19 11:16 11:37 11:46 Temperature 97.9 F Pulse Rate 106 H 98 H Respiratory 20 Rate Blood Pressure 127/64 126/67 06/30/19 06/30/19 06/30/19 12:16 12:45 13:16 Temperature Pulse Rate 103 H 93 H 95 H Respiratory Rate Blood Pressure 133/64 126/66 132/73 06/30/19 06/30/19 06/30/19 13:47 14:33 14:34 Temperature Pulse Rate 92 H 86 88 Respiratory Rate Blood Pressure 132/80 129/85 133/77 06/30/19 14:45 Temperature Pulse Rate 88 Respiratory Rate Blood Pressure 131/68 - Exam Breasts: normal Cardiovascular: Regular rate Lungs: Normal air movement Abdomen: Present: normal appearance, soft Vulva: both: normal Uterus: Present: normal, fundal height above umbilicus FHR: auscultation normal Uterine Contraction Monitor Mode: External Cervical Dilatation: 2.5 (+ bloody show noted) Cervical Effacement Percentage: 70 station: -1 Uterine Contraction Pattern: Regular Uterine Tone Measurement Phase: Contraction Uterine Contraction Intensity: Moderate Extremities: normal
[2019-06-30] MEDS ORDERED: NALOXONE 2 MG/2 ML INJ IV PRN (16:35)
[2019-06-30] MEDS ORDERED: ePHEDrine SULFATE 50 MG/1 ML INJ IV PRN (16:35)
--- NOTE | 2019-06-30 16:35 | Anesthesia Consultation ---
Anesthesia Consult and Med Hx Date of service: 06/30/19 - Airway Anesthetic Teeth Evaluation: Good ROM Head & Neck: Adequate Mental/Hyoid Distance: Adequate Mallampati Class: Class II Intubation Access Assessment: Probably Good - Pre-Operative Health Status ASA Pre-Surgery Classification: ASA2 Proposed Anesthetic Plan: Epidural, Spinal - Pulmonary Hx Asthma: No COPD: No Hx Pneumonia: No - Cardiovascular System Hx Hypertension: No - Central Nervous System Hx Seizures: No Hx Psychiatric Problems: No - Endocrine Hx Renal Disease: No Hx End Stage Renal Disease: No Hx Hypothyroidism: No Hx Hyperthyroidism: No - Hematic Hx Anemia: No Hx Sickle Cell Disease: No - Other Systems Hx Alcohol Use: No
[2019-06-30] MEDS ORDERED: fentaNYL-BUPIV 2 MCG/ML-0.125% 200 MCG/100 ML BAG EPIDURAL SCH (17:00)
--- NOTE | 2019-06-30 17:03 | Progress Note ---
Assessment and Plan - Patient Problems (1) 38 weeks gestation of Current Visit: Yes Status: Acute (2) AMA (advanced maternal age) multigravida 35+ Current Visit: Yes Status: Acute Qualifiers: Trimester: third trimester Qualified Code(s): O09.523 - Supervision of elderly multigravida, third trimester (3) Gestational hypertension without significant proteinuria in third trimester Current Visit: Yes Status: Acute Plan to address problem: -s/p IOL now in active laboe -con't pitocsin -SROM with AROM of for bag and mec stained fluid noted. -anticipate Subjective - Subjective Date of service: 06/30/19 Principal diagnosis: IUP 38+3 wks @ IOL for gHTN Interval history: Pt is comfortable with epidural in place. Patient reports: movement normal, contractions, no loss of fluid, no vaginal bleeding Objective - Vital Signs Vital Signs: Vital Signs - 12hr 06/30/19 06/30/19 06/30/19 07:18 07:50 08:11 Temperature 98.4 F Pulse Rate 93 H 94 H Respiratory 16 Rate Blood Pressure 105/83 121/65 06/30/19 06/30/19 06/30/19 10:38 11:16 11:37 Temperature 97.9 F Pulse Rate 102 H 106 H Respiratory 20 Rate Blood Pressure 129/61 127/64 06/30/19 06/30/19 06/30/19 11:46 12:16 12:45 Temperature Pulse Rate 98 H 103 H 93 H Respiratory Rate Blood Pressure 126/67 133/64 126/66 06/30/19 06/30/19 06/30/19 13:16 13:47 14:33 Temperature Pulse Rate 95 H 92 H 86 Respiratory Rate Blood Pressure 132/73 132/80 129/85 06/30/19 06/30/19 06/30/19 14:34 14:45 15:15 Temperature Pulse Rate 88 88 83 Respiratory Rate Blood Pressure 133/77 131/68 135/76 06/30/19 06/30/19 06/30/19 15:46 15:55 16:14 Temperature 98.8 F Pulse Rate 86 88 Respiratory 20 Rate Blood Pressure 138/82 136/71 06/30/19 06/30/19 06/30/19 16:15 16:33 16:35 Temperature Pulse Rate 88 93 H 88 Respiratory Rate Blood Pressure 141/76 130/66 136/65 06/30/19 06/30/19 06/30/19 16:36 16:38 16:40 Temperature Pulse Rate 89 88 87 Respiratory Rate Blood Pressure 137/66 141/67 143/69 06/30/19 06/30/19 06/30/19 16:42 16:45 16:47 Temperature Pulse Rate 86 90 86 Respiratory Rate Blood Pressure 140/67 140/63 114/53 - Exam Abdomen: Present: normal appearance, soft FHR: category 1 Cervical Dilatation: 4 Cervical Effacement Percentage: 100 station: 0 Uterine Contraction Pattern: Regular Uterine Tone Measurement Phase: Resting Extremities: normal
[2019-06-30] MEDS ORDERED: miSOPROStol 200 MCG TAB ONE (21:14)
[2019-06-30] MEDS ORDERED: miSOPROStol 200 MCG TAB PR ONE (21:15)
[2019-06-30] MEDS ORDERED: MAGNESIUM HYDROXIDE (MOM) ORAL LIQD UDC PO PRN (21:43)
[2019-06-30] MEDS ORDERED: PROMETHAZINE 25 MG TAB PO PRN (21:43)
[2019-06-30] MEDS ORDERED: PROMETHAZINE 25 MG RECT SUPP PR PRN (21:43)
[2019-06-30] MEDS ORDERED: ONDANSETRON 4 MG/2 ML INJ IV PRN (21:43)
[2019-06-30] MEDS ORDERED: diphenhydrAMINE 25 MG CAP PO PRN (21:43)
[2019-06-30] MEDS ORDERED: WITCH HAZEL/ GLYCERIN PAD TP PRN (21:43)
[2019-06-30] MEDS ORDERED: LANOLIN/ZINC/DIMETHICONE (LANSINOH) 7 GM TP PRN (21:43)
[2019-06-30] MEDS ORDERED: KETOROLAC 30 MG/1 ML INJ IV PRN (21:43)
[2019-06-30] MEDS ORDERED: ACETAMINOPHEN 325 MG TAB PO PRN (21:43)
--- NOTE | 2019-06-30 21:50 | Procedure Note ---
OB Delivery Note - Delivery Date of Delivery: 06/30/19 Surgeon: HECTOR HUTCHINSON Estimated blood loss: 1000cc - Vaginal Delivery presentation: vertex Delivery position: OA Delivery induction: cervidil Delivery augmentation: rupture of membranes, pitocin Delivery monitor: external FHT, external uterine Route of delivery: Delivery placenta: spontaneous Delivery cord: 3 umbilical vessels Episiotomy: none Delivery laceration: 2nd degree (perineal) Delivery repair: vicryl (3-0) Anesthesia: epidural Delivery comments: Delivery as above. Ant shoulder and rest of delivered without difficulty. Infant placed on maternal abdomen. NICU and respiratory teams at bedside at time of delivery. Placenta delivered spontaneously intact. Laceration noted as above and repaired in usual fashion with 3-0 vicryl. Pt did have uterine atony relived with 800mcg of cytotec, uterine massage. EBL about 1L.Mother and stable in LDR. - A at 1 minute: 8 at 5 minutes: 9 Gender: Female (7lbs 4oz)
[2019-07-01] MEDS: IBUPROFEN 600 MG TAB PO SCH ×3 (02:51→18:54)
--- NOTE | 2019-07-01 10:11 | Post Anesthesia Evaluation ---
- Post Anesthesia Evaluation Patient Participated: Yes Airway Patent: Yes Stable Respiratory Function: Yes Nausea/Vomiting: No Temp > 96.8F: Yes Pain Manageable: Yes Adequeate Hydration: Yes Anesthesia Complications: No Block Receding Appropriately: Yes Patient on Ventilator: No
--- NOTE | 2019-07-01 14:25 | Progress Note ---
Assessment and Plan - Patient Problems (1) Delivery normal Current Visit: Yes Status: Acute Plan to address problem: Continue post pathway (2) 38 weeks gestation of Current Visit: Yes Status: Acute (3) Gestational hypertension without significant proteinuria in third trimester Current Visit: Yes Status: Acute Plan to address problem: BP's stable, no BP medication at this time (4) AMA (advanced maternal age) multigravida 35+ Current Visit: Yes Status: Acute Qualifiers: Trimester: third trimester Qualified Code(s): O09.523 - Supervision of renita rincon multigravida, third trimester Subjective - Subjective Date of service: 07/01/19 Principal diagnosis: PPD#1 , GHTN Interval history: Past History : 2 Term Births: 0 Premature Births: 0 Living Children: 0 Para: 0 Mult. Births: 0 Prev : 0 Prev. attempt? 0 Aborta: 1 Elect. Ab: 1 Spont. Ab: 0 Ectopics: 0 # 1 Delivery date: 1999 Weeks Gestation: 4 Comments: D&C Past Medical History: fibroids heart murmur, hx. not heard today on examination Past Surgical History: D&C 1999 breast implants 2008 lipo 2008 wisdom teeth 2004 Past Medical History Surgery (Non-obstetrics gyn): D&C 1999 breast implants 2007 lipo 2008 wisdom teeth 2004 Abnormal PAP: negative JOHANNE Exposure: negative Infertility: negative Uterine Anomaly: negative Uterine Surgery (not C/S): negative Other Gynecologic Problems: negative Family Hx: mom-diabetes, htn dad-diabetes mgm- diabetes pgm-diabetes Social Hx: . lives with works as senior revenue accountant denies tobacco/drugs. ETOH early Infection History Hx of STD: none HIV Risk Eval: low risk Hepatitis B Risk Eval: low risk Personal hx. of genital herpes: no Partner hx. of genital herpes: no Rash, Viral, or Febrile illness since last LMP? no Varicella/Chicken Pox Status: Unknown TB Risk: no Infection History Comments: will draw varicella with IOB appt Genetic History ADVANCED MATERNAL AGE Congenital Heart Defect: Mom: no Dad: no Rosana Disease: Mom: no Dad: no Thalassemia Mom: no Dad: no Neural Tube Defect Mom: no Dad: no Down's Syndrome Mom: no Dad: no Nixon-Sachs Mom: no Dad: no Sickle Cell Disease/Trait Mom: no Dad: no Hemophilia Mom: no Dad: no Muscular Dystrophy Mom: no Dad: no Cystic Fibrosis Mom: no Dad: no [place] Chorea Mom: no Dad: no Mental Retardation Mom: no Dad: no Fragile X Mom: no Dad: no Other Genetic/Chromosomal Disorder Mom: no Dad: no Child w/other defect Mom: no Dad: no Comments/Counseling: [facility] referral sent Enviromental Exposures Enviromental Exposures Reviewed Xray Exposure: no Medication, drug, or alcohol use since LMP: no Chemical/Other Exposure: no Exposure to Cat Liter: no Hx of Parvovirus (Fifth Disease): no Occupational Exposure to Children: none Active Medications (reviewed today): None Current Allergies (reviewed today): No known allergies Patient reports: appetite normal, voiding normally, pain well controlled Objective - Vital Signs Latest vital signs: Vital Signs Temp Pulse Resp BP BP Pulse Ox 07/01/19 09:01 98.5 F 94 H 18 125/82 07/01/19 05:25 99.0 F 104 H 18 104/61 95 07/01/19 02:51 20 07/01/19 00:05 98.3 F 80 18 131/70 100 06/30/19 22:34 96 H 131/62 97 06/30/19 22:29 98 H 128/60 96 06/30/19 22:24 98 H 97 06/30/19 22:23 97 H 128/65 06/30/19 22:19 99 H 99 06/30/19 22:18 93 H 122/55 06/30/19 22:14 98 H 127/60 06/30/19 22:09 96 H 150/63 06/30/19 21:54 103 H 122/67 06/30/19 21:49 100 H 120/68 06/30/19 21:46 98 H 96 06/30/19 21:44 126 H 128/60 06/30/19 21:41 103 H 97 06/30/19 21:40 106 H 92 06/30/19 21:38 91 H 120/70 06/30/19 21:36 96 H 98 06/30/19 21:33 98 H 116/73 06/30/19 21:31 98 H 98 06/30/19 21:29 100 H 110/62 06/30/19 21:26 99 H 98 12/20/19 21:22 96 H 118/58 1220/19 21:21 96 H 98 1220/19 21:18 99 H 94 1220/19 21:17 103 H 128/61 1220/19 21:16 101 H 96 1220/19 21:12 97 H 121/57 1220/19 21:11 98 H 96 1220/19 21:07 102 H 121/70 1220/19 21:06 105 H 99 1220/19 21:02 99 H 90 1220/19 21:01 85 123/72 99 12/20/19 20:56 90 88 1220/19 20:51 86 100 1220/19 20:46 75 100 1220/19 20:41 78 100 1220/19 20:36 78 100 1220/19 20:31 94 H 100 20/19 20:26 76 100 1220/19 20:21 83 99 20/19 20:16 84 100 1220/19 20:11 76 100 20/19 20:06 94 H 99 20/19 20:01 85 122/73 96 1220/19 19:56 84 100 1220/19 19:53 84 77 L 1220/19 19:51 78 97 1220/19 19:46 77 96 1220/19 19:41 82 97 12/20/19 19:36 83 98 1220/19 19:31 93 H 98 1220/19 19:29 88 94 1220/19 19:26 86 95 1220/19 19:23 83 121/67 1220/19 19:21 86 93 1220/19 19:16 80 94 1220/19 19:11 77 97 12/20/19 19:06 88 97 1220/19 19:01 83 97 1220/19 19:00 97.7 F 14 1220/19 18:56 90 94 1220/19 18:52 94 H 94 1220/19 18:51 89 93 1220/19 18:46 83 114/64 94 12/20/19 18:41 82 93 1220/19 18:36 91 H 94 1220/19 18:31 84 94 12/20/19 18:30 87 114/63 06/30/19 18:26 85 94 06/30/19 18:25 88 94 06/30/19 18:21 84 94 06/30/19 18:16 88 120/67 96 06/30/19 18:15 87 93 06/30/19 18:11 86 94 06/30/19 18:09 86 94 06/30/19 18:06 83 94 06/30/19 18:01 91 H 127/69 82 L 06/30/19 18:00 97.8 F 19 06/30/19 17:46 85 133/72 06/30/19 17:30 83 137/77 06/30/19 17:24 85 129/78 06/30/19 17:13 82 115/59 06/30/19 17:11 84 132/56 06/30/19 17:09 84 111/55 06/30/19 17:06 82 118/57 06/30/19 17:04 80 112/56 06/30/19 17:02 81 122/59 06/30/19 17:00 81 118/58 06/30/19 16:58 81 114/59 06/30/19 16:56 82 115/56 06/30/19 16:55 83 115/57 06/30/19 16:53 80 111/53 06/30/19 16:51 81 116/55 06/30/19 16:48 84 114/56 06/30/19 16:47 86 114/53 06/30/19 16:45 90 140/63 06/30/19 16:42 86 140/67 06/30/19 16:40 87 143/69 06/30/19 16:38 88 141/67 06/30/19 16:36 89 137/66 06/30/19 16:35 88 136/65 06/30/19 16:33 93 H 130/66 06/30/19 16:15 88 141/76 06/30/19 16:14 88 136/71 06/30/19 15:55 98.8 F 20 06/30/19 15:46 86 138/82 06/30/19 15:15 83 135/76 06/30/19 14:45 88 131/68 06/30/19 14:34 88 133/77 12/20/19 14:33 86 129/85 Intake and Output 06/30/19 07/01/19 07/01/19 22:59 06:59 14:59 Intake Total 93.300 360 480 Output Total 115 Balance -21.700 360 480 Intake: IV 93.300 PITOCin/NS 30 UNIT/500ML 93.300 30 units In 500 ml @ 4 MILLIUNITS/MIN 4 mls/hr IV Q30MIN [facility] Rx#: [id number] Oral 480 Intake, Free Water 360 Output: Urine 115 Indwelling Catheter 115 Other: Total, Intake Amount 480 Total, Output Amount 115 Estimated Blood Loss 1,000 - Exam Breasts: Present: normal Lungs: Present: Normal air movement Abdomen: Present: soft. Absent: tenderness Uterus: Present: fundal height below umbilicus. Absent: tenderness
[2019-07-01 14:46] LABS: Hematocrit 31.1 % (30.3-42.9); Hemoglobin 10.3 gm/dl (10.1-14.3)
[2019-07-02 09:01] VITALS: BP 123/74
[2019-07-02] MEDS ORDERED: FLU VACC QUAD 2019-20 (3 YR UP)/PF 60 MCG/0.5 ML SYRINGE IM ONE (10:10)
[2019-07-02] MEDS ORDERED: TETANUS,DIPH,PERTUSS(ACELL) VACCINE 0.5 ML SYRINGE IM ONE (10:10)
[2019-07-02] MEDS: IBUPROFEN 600 MG TAB PO SCH (10:19)
--- NOTE | 2019-07-02 10:48 | Discharge Summary ---
Providers - Providers Date of Admission: 06/28/19 17:40 Date of discharge: 07/02/19 Attending physician: ASHLEY GILMORE Primary care physician: ASHLEY GILMORE Hospitalization Condition: Good Procedures: Hospital course: Patient presented for IOL d/t AMA and GHTN with severe features. She had with [facility] required Cytotec OR. VSS have been stable. Today state she still is saturating 1pad every 2hours. Will rechk H/H and pad count. Will allow home if stable Disposition: DC-01 TO HOME OR SELFCARE - Discharge Diagnoses (1) Delivery normal Status: Acute (2) 38 weeks gestation of Status: Acute (3) Gestational hypertension without significant proteinuria in third trimester Status: Acute (4) AMA (advanced maternal age) multigravida 35+ Status: Acute Qualifiers: Trimester: third trimester Qualified Code(s): O09.523 - Supervision of elderly multigravida, third trimester Core Measure Documentation - Palliative Care Palliative Care/ Comfort Measures: Not Applicable - Core Measures Any of the following diagnoses?: none Exam - Constitutional Vitals: Temp Pulse Resp BP Pulse Ox 97.8 F 89 18 123/74 97 07/02/19 08:33 07/02/19 08:33 07/02/19 08:33 07/02/19 08:33 07/02/19 00:34 General appearance: Present: no acute distress - Neck Neck: Present: supple - Respiratory Respiratory effort: normal Respiratory: bilateral: CTA - Cardiovascular Rhythm: regular - Extremities Extremities: no ischemia Extremity abnormal: edema (trace) - Abdominal General gastrointestinal: Present: soft, non-tender, non-distended, normal bowel sounds Female genitourinary: Present: normal, other (Pad had ~8x3cm pink drainage, perineum: suture intact, no induration or bleeding, scant dark blood on perineum but no active drainage from vagina with fundal massage, fundus firm,NT. ) - Musculoskeletal Musculoskeletal: strength equal bilaterally - Psychiatric Psychiatric: appropriate mood/affect, intact judgment & insight, memory intact, cooperative - Neurologic Neurologic: CNII-XII intact - Additional findings Additional findings: Breast NT, no s/s engorgement Plan Activity: other (No sex) Weight Bearing Status: Full Weight Bearing Diet: regular Wound: open to air, keep clean and dry Special Instructions: no heavy lifting (greater than 25lbs) Care Plan Goals: full recovery with normal course Plan of Treatment: Follow up in office Health Concerns: Encouraged ambulation and breast feeding. She will need to call office for elevated Blood pressures, visual changes or headache unresponsive to Ibuprofen or Tylenol or any sign/ symptoms of infection Follow up with: ASHLEY GILMORE MD [Primary Care Provider] - 7 Days (BP check)
[2019-07-02 11:11] LABS: Hematocrit 28.4 % (30.3-42.9); Hemoglobin 9.4 gm/dl (10.1-14.3)
== END 2019-07-02 13:35 | disposition home or self-care (01) | DRG 807 ==
LOC: LD 17:07 → TRG 17:07 → LD 17:40 → OB 06-30 23:47
PROVIDERS: ADMIT Obstetrics & Gynecology; ATTEND Obstetrics & Gynecology
PROC: 10E0XZZ Delivery of Products of Conception, External Approach (ICD-10-PCS; principal; 2019-06-30)
PROC: 0KQM0ZZ Repair Perineum Muscle, Open Approach (ICD-10-PCS; 2019-06-30)
PROC: 3E0P7VZ Introduction of Hormone into Female Reproductive, Via Natural or Artificial Opening (ICD-10-PCS; 2019-06-30)
PROC: 3E0R3BZ Introduction of Anesthetic Agent into Spinal Canal, Percutaneous Approach (ICD-10-PCS; 2019-06-30)
PROC: 00HU33Z Insertion of Infusion Device into Spinal Canal, Percutaneous Approach (ICD-10-PCS; 2019-06-30)
PROC: 10907ZC Drainage of Amniotic Fluid, Therapeutic from Products of Conception, Via Natural or Artificial Opening (ICD-10-PCS; 2019-06-30)
PROC: 3E0234Z Introduction of Serum, Toxoid and Vaccine into Muscle, Percutaneous Approach (ICD-10-PCS; 2019-07-02)
DX: O13.4 Gestational [pregnancy-induced] hypertension without significant proteinuria, complicating childbirth (principal); Z37.0 Single live birth; O24.419 Gestational diabetes mellitus in pregnancy, unspecified control; O62.2 Other uterine inertia; O70.1 Second degree perineal laceration during delivery; Z82.49 Family history of ischemic heart disease and other diseases of the circulatory system; Z23 Encounter for immunization; Z3A.38 38 weeks gestation of pregnancy; Z83.3 Family history of diabetes mellitus
CPT/HCPCS: 36415; 59200; 85014; 85018; 86592; 86850; 86900; 86901; 88307; 90686; 90715; G0378; J0595; J2590; J7120

== ENCOUNTER 2019-07-03 02:24 | Inpatient (IN) | payer BC ==
[2019-07-03 03:25] LABS: Basophils # (Auto) 0.1 K/mm3 (0.0-0.1); Basophils % (Auto) 0.7 % (0.0-1.8); Eosinophils # (Auto) 0.4 K/mm3 (0.0-0.4); Eosinophils % (Auto) 3.7 % (0.0-4.3); Hematocrit 28.8 % (30.3-42.9); Hemoglobin 9.8 gm/dl (10.1-14.3); Lymphocytes # (Auto) 1.3 K/mm3 (1.2-5.4); Lymphocytes % (Auto) 11.5 % (13.4-35.0); Mean Corpuscular HGB Conc 34 % (30-34); Mean Corpuscular Volume 86 fl (79-97); Monocytes # (Auto) 0.9 K/mm3 (0.0-0.8); Monocytes % (Auto) 8.4 % (0.0-7.3); Platelet Count 188 K/mm3 (140-440); Red Blood Count 3.34 M/mm3 (3.65-5.03); Red Cell Distribution Width 15.3 % (13.2-15.2)
--- NOTE | 2019-07-03 03:29 | XRay Report ---
CHEST 1 VIEW INDICATION: tachycardia. COMPARISON: None FINDINGS: SUPPORT DEVICES: None. HEART / MEDIASTINUM: No significant abnormality. LUNGS / PLEURA: Diffuse pulmonary process is present with interstitial and patchy airspace component. No pneumothorax. ADDITIONAL FINDINGS: IMPRESSION: 1. Diffuse pulmonary process, pulmonary edema is a concern Signer Name: Tank Stroud MD Signed: 07/03/2019 3:24 AM Workstation Name: [email or web address]
[2019-07-03 03:38] LABS: INR 0.96 (0.87-1.13)
[2019-07-03] MEDS ORDERED: HEPARIN 10,000 UNITS/10 ML VIAL IV ONE (03:40)
--- NOTE | 2019-07-03 03:43 | Cat Scan Report ---
CTA CHEST WITH IV CONTRAST INDICATION / CLINICAL INFORMATION: MAIN: Shortness of breath/ CHEST PAIN. 100 ML OMNIPAQUE 350 . TECHNIQUE: Axial CT images were obtained through the chest after injection of 100 cc Omnipaque 350 milligrams pe rcent IV contrast. 3 plane MIP and/or 3D reconstructions were produced. All CT scans at this location are performed using CT dose reduction for ALARA by means of automated exposure control. COMPARISON: None available. Motion artifact obscures fine detail FINDINGS: PULMONARY ARTERIES: No pulmonary emboli. THORACIC AORTA: No significant abnormality. HEART: No significant abnormality. CORONARY ARTERIES: No significant calcification. PLEURA: Small bilateral pleural effusions No pneumothorax. LYMPH NODES: No significant adenopathy. LUNGS: Diffuse interstitial pulmonary edema with minimum patchy airspace parenchymal changes ADDITION AL FINDINGS: None. UPPER ABDOMEN: No acute findings. SKELETAL STRUCTURES: No significant osseous abnormality. IMPRESSION: 1. No CT evidence for pulmonary embolism. 2. Diffuse interstitial and patchy airspace pulmonary process with bilateral pleural effusions, worri some for pulmonary edema Signer Name: Tank Stroud MD Signed: 07/03/2019 3:38 AM Workstation Name: [id number]
[2019-07-03 03:54] LABS: BUN/Creatinine Ratio 14; Blood Urea Nitrogen 10 mg/dL (7-17); Calcium 8.4 mg/dL (8.4-10.2); Hemolysis Index 30
[2019-07-03] MEDS ORDERED: ASPIRIN 81 MG TAB CHEW PO ONE (04:00)
[2019-07-03] MEDS ORDERED: FUROSEMIDE 40 MG/4 ML INJ IV ONE (04:00)
[2019-07-03] MEDS ORDERED: HEPARIN/ 0.45% NACL DRIP 25,000 UNIT/500 ML BAG IV SCH (04:00)
--- NOTE | 2019-07-03 04:01 | Emergency Department Report ---
ED Shortness of Breath HPI - General Chief Complaint: Dyspnea/Respdistress Stated Complaint: SHORTNESS OF BREATH Time Seen by Provider: 07/03/19 02:53 Source: patient, family Mode of arrival: Ambulatory Limitations: No Limitations - History of Present Illness Initial Comments: Reports her sister experienced CHF after as well. MD Complaint: shortness of breath -: Gradual, days(s) (2) Severity: severe Pain Scale: 8 Consistency: other (worsening) Improves With: rest Worsens With: exertion Context: other (Reports recent vaginal delivery Wednesday here. Reports delivery complicated by large amount of bleeding. Denies recieving blood transfusion. ) - Related Data Home Medications Medication Instructions Recorded Confirmed Last Taken Aspirin 1 tab PO DAILY 06/28/19 06/28/19 Unknown Vitamin 1 tab PO DAILY 06/28/19 06/28/19 Unknown Allergies Allergy/AdvReac Type Severity Reaction Status Date / Time No Known Allergies Allergy Verified 06/28/19 12:28 ED Review of Systems ROS: Stated complaint: SHORTNESS OF BREATH Other details as noted in HPI Other: GENERAL: No weight change, fatigue, fever, chills, or night sweats SKIN: No changes in skin or hair, no itching, no rashes, no jaundice HEAD: No trauma EYES: No blurriness, tearing, itching, acute visual loss, conjunctival discoloration, or scleral icterus EARS: No hearing loss, tinnitus, vertigo, or earache NOSE: No rhinorrhea, stuffiness, sneezing, itching, or epistaxis MOUTH: No bleeding gums, hoarseness, sore throat, or swelling CARDIAC: No new murmur, chest pain, palpitations, orthopnea, PND, or edema RESPIRATORY: Shortness of breath. Dyspnea on exertion. Denies wheeze, cough, sputum production, hemoptysis GI: No abdominal pain, nausea, vomiting, dysphagia, diarrhea, constipation, hematemesis, melena, hematochezia URINARY: No frequency, urgency, polyuria, dysuria, hematuria, or incontinence MUSCULOSKELETAL: No muscle weakness, joint stiffness, decrease in range of motion, redness, swelling NEUROLOGIC: No headache, syncope, loss of sensation, numbness, tingling, tremors, weakness, paralysis, seizures HEMATOLOGIC: No anemia, easy bruising, bleeding, petechiae, or purpura ENDOCRINE: No hot or cold intolerance, sweating, polyuria, polydipsia or, polyphagia no thyroid problems PSYCHIATRIC: No change in mood, no anxiety, no depression ED Past Medical Hx - Past Medical History Previous Medical History?: Yes Hx Hypertension: Yes (Pre eclampsia) Hx Congestive Heart Failure: No Hx Diabetes: No Hx Deep Vein Thrombosis: No Hx Renal Disease: No Hx Sickle Cell Disease: No Hx Seizures: No Hx Asthma: No Hx COPD: No Hx HIV: No - Surgical History Past Surgical History?: No - Social History Smoking Status: Never Smoker Substance Use Type: None - Medications Home Medications: Home Medications Medication Instructions Recorded Confirmed Last Taken Type Aspirin 1 tab PO DAILY 06/28/19 06/28/19 Unknown History Vitamin 1 tab PO DAILY 06/28/19 06/28/19 Unknown History ED Physical Exam - General Limitations: No Limitations - Other Other exam information: GENERAL: Patient in acute distress HEAD: Normocephalic, atraumatic EYES: PERRLA, EOM intact, no scleral icterus, no conjunctival hemorrhage, visual rutherford and acuity wnl NOSE: No tenderness, discharge, sinus tenderness MOUTH: No erythema, bleeding, exudate HEART: Regular rate and rhythm, no murmur, S1-S2 are auscultated, no edema, pulses are symmetric LUNGS: Bibasilar rales. mild respiratory distress. Bilateral breath sounds, tachypnea, No retractions, No wheezing, rhonchi ABDOMEN: Normal bowel sounds, abdomen soft, no tenderness, no rebound, no guarding, no distention, no masses, no CVA tenderness MUSCULOSKELETAL: Normal joint range of motion, no redness, no swelling, no tenderness NEUROLOGIC: GCS 15, Alert and Oriented x3, Cranial nerves intact, normal sens ation, normal strength, no cerebellar deficit, NIHSS 0 SKIN: Skin is warm and dry, no wounds, no rashes ED Course Vital Signs 07/03/19 07/03/19 07/03/19 02:31 04:28 04:33 Temperature 98.8 F Pulse Rate 100 H 86 Respiratory 18 14 14 Rate Blood Pressure 139/85 Blood Pressure 124/75 [Left] O2 Sat by Pulse 89 98 Oximetry ED Medical Decision Making - Lab Data Result diagrams: 07/03/19 03:50 07/03/19 03:00 Laboratory Results - last 24 hr 07/03/19 07/03/19 07/03/19 03:00 03:00 03:00 WBC 11.1 H RBC 3.34 L Hgb 9.8 L Hct 28.8 L MCV 86 MCH 29 MCHC 34 RDW 15.3 H Plt Count 188 Lymph % (Auto) 11.5 L [place] % (Auto) 8.4 H Eos % (Auto) 3.7 Baso % (Auto) 0.7 Lymph # 1.3 [place] # 0.9 H Eos # 0.4 Baso # 0.1 Seg Neutrophils % 75.7 H Seg Neutrophils # 8.4 H PT 12.9 INR 0.96 APTT 27.0 Sodium 140 Potassium 4.0 Chloride 109.6 H Carbon Dioxide 19 L Anion Gap 15 BUN 10 Creatinine 0.7 Estimated GFR > 60 BUN/Creatinine Ratio 14 Glucose 77 Calcium 8.4 Magnesium Troponin T < 0.010 NT-Pro-B Natriuret Pep 1387 H 07/03/19 03:00 WBC RBC Hgb Hct MCV MCH MCHC RDW Plt Count Lymph % (Auto) [place] % (Auto) Eos % (Auto) Baso % (Auto) Lymph # Mcke[place] # Eos # Baso # Seg Neutrophils % Seg Neutrophils # PT INR APTT Sodium Potassium Chloride Carbon Dioxide Anion Gap BUN Creatinine Estimated GFR BUN/Creatinine Ratio Glucose Calcium Magnesium 1.60 L Troponin T NT-Pro-B Natriuret Pep - EKG Data When compared to previous EKG there are: no significant change - Radiology Data Radiology results: report reviewed - Medical Decision Making Patient comfortable. Updated with results. Plan admit for further evaluation. Hospitalist updated and accepts admission. Critical care attestation.: If time is entered above; I have spent that time in minutes in the direct care of this critically ill patient, excluding procedure time. ED Disposition Clinical Impression: CHF (congestive heart failure) Qualifiers: Heart failure type: unspecified Heart failure chronicity: acute Qualified Code(s): I50.9 - Heart failure, unspecified Pulmonary edema Qualifiers: Chronicity: acute Qualified Code(s): J81.0 - Acute pulmonary edema Disposition: OP ADMIT IP TO THIS HOSP Is pt being admited?: Yes Condition: Stable Instructions: Pulmonary Edema (ED) Referrals: PRIMARY CARE, [Primary Care Provider] - 3-5 Days
[2019-07-03 04:35] LABS: Hematocrit 27.3 % (30.3-42.9); Hemoglobin 9.1 gm/dl (10.1-14.3)
[2019-07-03 04:47] LABS: INR 1.01 (0.87-1.13)
[2019-07-03 04:48] LABS: Partial Thromboplastin Time 30.3 Sec. (24.2-36.6)
[2019-07-03] MEDS ORDERED: ONDANSETRON 4 MG/2 ML INJ IV PRN ×2 (05:02→06:13)
[2019-07-03] MEDS ORDERED: ACETAMINOPHEN 325 MG TAB PO PRN (05:02)
[2019-07-03] MEDS ORDERED: MAGNESIUM SULFATE 1 GM in WATER FOR INJ (PF) 23 ML IV ONE (06:12)
--- NOTE | 2019-07-03 06:18 | History and Physical Report ---
History of Present Illness Date of admission: 07/03/19 04:57 History of present illness: 44-year-old woman status post vaginal delivery, discharged from the hospital yesterday comes back to the emergency room with complaints of shortness of breath. Patient stated that she was due on July 11 but because her blood pressure is been under control which she developed during the last week of the ED started on June 28. 3 hours after she got home she started having shortness of breath, dyspnea on exertion, orthopnea. Review Of Systems: Constitutional: no weight loss Ears, eyes, nose, mouth and throat: no nasal congestion, no nasal discharge, no sinus pressure, blurry vision, diplopia Neck: No neck pain or rigidity. Cardiovascular: no chest pain, orthopnea, palpitations Respiratory: + shortness of breath, no cough Gastrointestinal: abdominal pain, hematochezia Genitourinary : no dysuria, frequency , hematuria Musculoskeletal: no muscle ache Integumentary: no rash, no pruritis Neurological: no parathesias, focal weakness Endocrine: no cold or heat intolerance, no polyuria or polydipsia Hematologic/Lymphatic: no easy bruising, no easy bleeding, no gland swelling Allergic/Immunologic: no urticaria, no angioedema. coronary artery disease and hyperlipidemia, colon cancer PAST MEDICAL HISTORY; hypertension PAST SURGICAL HISTORY: none SOCIAL HISTORY: no tobacco , no alcohol or drugs FAMILY HISTORY: hypertension Medications and Allergies Allergies Allergy/AdvReac Type Severity Reaction Status Date / Time No Known Allergies Allergy Verified 06/28/19 12:28 Home Medications Medication Instructions Recorded Confirmed Last Taken Type Aspirin 1 tab PO DAILY 06/28/19 06/28/19 Unknown History Vitamin 1 tab PO DAILY 06/28/19 06/28/19 Unknown History Active Meds: Active Medications Acetaminophen (Tylenol) 650 mg PO Q4H PRN PRN Reason: Pain MILD(1-3)/Fever >100.5/URBINA Acetaminophen (Tylenol) 650 mg PO Q4H PRN PRN Reason: Pain MILD(1-3)/Fever >100.5/URBINA Aspirin (Baby Aspirin) 81 mg PO QDAY LIANE Furosemide (Lasix) 40 mg IV BID@0600,1800 LIANE Magnesium Sulfate 1 gm/ (Sterile Water) 25 mls @ 25 mls/hr IV ONCE ONE Stop: 07/03/19 07:11 Ondansetron HCl (Zofran) 4 mg IV Q8H PRN PRN Reason: Nausea And Vomiting Ondansetron HCl (Zofran) 4 mg IV Q8H PRN PRN Reason: Nausea And Vomiting Sodium Chloride (Sodium Chloride Flush Syringe 10 Ml) 10 ml IV BID LIANE Sodium Chloride (Sodium Chloride Flush Syringe 10 Ml) 10 ml IV PRN PRN PRN Reason: LINE FLUSH Sodium Chloride (Sodium Chloride Flush Syringe 10 Ml) 10 ml IV BID LIANE Sodium Chloride (Sodium Chloride Flush Syringe 10 Ml) 10 ml IV PRN PRN PRN Reason: LINE FLUSH Exam - Physical Exam Narrative exam: Gen. appearance: Patient lying in bed, no apparent distress HEENT: Normocephalic, atraumatic, pupils equally round and reactive to light, extraocular movement intact, and no sclericterus,. No JVD or thyromegaly or nodule,neck supple, no carotid bruit ,mucous membranes moist, no exudate or erythema Heart: S1, S2, regular rate and rhythm Lungs: Crackles bilaterally, breathing comfortable Abdomen: Positive bowel sounds, nontender, nondistended, no organomegaly Extremity: +edema, no cyanosis, clubbing Skin: No rash, nodules, warm, dry Neuro: Oriented 3, cranial nerves II-12 intact, speech is fluent, motor and sensory intact - Constitutional Vitals: Temp Pulse Resp BP Pulse Ox 98.8 F 86 14 124/75 98 07/03/19 02:31 07/03/19 04:33 07/03/19 04:33 07/03/19 04:33 07/03/19 04:33 Results - Labs CBC & Chem 7: 07/03/19 03:50 07/03/19 03:00 Labs: Abnormal lab results 07/03/19 07/03/19 07/03/19 Range/Units 03:00 03:00 03:00 WBC 11.1 H (4.5-11.0) K/mm3 RBC 3.34 L (3.65-5.03) M/mm3 Hgb 9.8 L (10.1-14.3) gm/dl Hct 28.8 L (30.3-42.9) % RDW 15.3 H (13.2-15.2) % Lymph % (Auto) 11.5 L (13.4-35.0) % [place] % (Auto) 8.4 H (0.0-7.3) % [place] # 0.9 H (0.0-0.8) K/mm3 Seg Neutrophils % 75.7 H (40.0-70.0) % Seg Neutrophils # 8.4 H (1.8-7.7) K/mm3 Chloride 109.6 H (98-107) mmol/L Carbon Dioxide 19 L (22-30) mmol/L Magnesium 1.60 L (1.7-2.3) mg/dL NT-Pro-B Natriuret Pep 1387 H (0-450) pg/mL 07/03/19 Range/Units 03:50 WBC (4.5-11.0) K/mm3 RBC (3.65-5.03) M/mm3 Hgb 9.1 L (10.1-14.3) gm/dl Hct 27.3 L (30.3-42.9) % RDW (13.2-15.2) % Lymph % (Auto) (13.4-35.0) % [place] % (Auto) (0.0-7.3) % [place] # (0.0-0.8) K/mm3 Seg Neutrophils % (40.0-70.0) % Seg Neutrophils # (1.8-7.7) K/mm3 Chloride (98-107) mmol/L Carbon Dioxide (22-30) mmol/L Magnesium (1.7-2.3) mg/dL NT-Pro-B Natriuret Pep (0-450) pg/mL Assessment and Plan Assessment CHF, new onset/most likely cardiomyopathy Diurese with IV Lasix, start aspirin Check cardiac enzymes, echo, consult cardiology Blood pressure will not tolerate beta-radha, BLAIRE inhibitor DVT prophylaxis
[2019-07-03] MEDS ORDERED: SODIUM CHLORIDE 0.9% 50 ML ONE (06:52)
--- NOTE | 2019-07-03 08:49 | Event Note ---
Date: 07/03/19 (courtesy visit [employer] RAMONE) Pt resting No c/o voiced at this time. Pt aware there will be further testing today for concerns of CHF and pulmonary edema. Pt states she is bottle feeding offered a breast pump if desired. FF below umb Lochia is scant. Vaginal repair intact. All questions addressed for PP care with pt. aware
[2019-07-03 09:31] LABS: Creatine Kinase MB 2.6 ng/mL (0.0-4.0)
--- NOTE | 2019-07-03 10:42 | Consultation ---
History of Present Illness Consult date: 07/03/19 Requesting physician: MAX MCGINNIS Consult reason: congestive heart failure History of present illness: Ms. Valles is a 44 y/o female with a history of gestational hypertension who returned to [facility] one day after discharge following the vaginal of a baby girl with c/o worsening SOB and BLE edema. She reports becoming easily short of breath while performing routine tasks around the house and while lying down. A CTA found no evidence of PE, but was suspicous for pulmonary edema and her BNP was elevated. EKG unremarkable and troponins negative. Her family history is significant for a sister who developed cardiomyopathy. Past History Past Medical History: hypertension, other (vaginal delivery - Jun 2019) Medications and Allergies Allergies Allergy/AdvReac Type Severity Reaction Status Date / Time No Known Allergies Allergy Verified 06/28/19 12:28 Home Medications Medication Instructions Recorded Confirmed Last Taken Type Aspirin 1 tab PO DAILY 06/28/19 06/28/19 Unknown History Vitamin 1 tab PO DAILY 06/28/19 06/28/19 Unknown History Active Meds: Active Medications Acetaminophen (Tylenol) 650 mg PO Q4H PRN PRN Reason: Pain MILD(1-3)/Fever >100.5/URBINA Aspirin (Baby Aspirin) 81 mg PO QDAY LIANE Furosemide (Lasix) 40 mg IV BID@0600,1800 LIANE Ondansetron HCl (Zofran) 4 mg IV Q8H PRN PRN Reason: Nausea And Vomiting Sodium Chloride (Sodium Chloride Flush Syringe 10 Ml) 10 ml IV BID LIANE Sodium Chloride (Sodium Chloride Flush Syringe 10 Ml) 10 ml IV PRN PRN PRN Reason: LINE FLUSH Physical Examination Vital Signs Temp Pulse Resp BP Pulse Ox 98.8 F 100 H 18 139/85 89 07/03/19 02:31 07/03/19 02:31 07/03/19 02:31 07/03/19 02:31 07/03/19 02:31 General appearance: no acute distress HEENT: Positive: PERRL Neck: Positive: neck supple Cardiac: Positive: Reg Rate and Rhythm Lungs: Positive: Normal Exam Neuro: Positive: Grossly Intact Abdomen: Positive: Unremarkable Female genitourinary: deferred Skin: Positive: Clear Musculoskeletal: Normal Range of Motion Extremities: Present: normal Results 07/03/19 03:50 07/03/19 03:00 Cardiac Enzymes 07/03/19 Range/Units 08:21 CK-MB (CK-2) 2.6 (0.0-4.0) ng/mL Coagulation 07/03/19 07/03/19 Range/Units 03:00 03:50 PT 12.9 13.4 (12.2-14.9) Sec. INR 0.96 1.01 (0.87-1.13) APTT 27.0 30.3 (24.2-36.6) Sec. CBC 07/03/19 07/03/19 Range/Units 03:00 03:50 WBC 11.1 H (4.5-11.0) K/mm3 RBC 3.34 L (3.65-5.03) M/mm3 Hgb 9.8 L 9.1 L (10.1-14.3) gm/dl Hct 28.8 L 27.3 L (30.3-42.9) % Plt Count 188 170 (140-440) K/mm3 Lymph # 1.3 (1.2-5.4) K/mm3 [place] # 0.9 H (0.0-0.8) K/mm3 Eos # 0.4 (0.0-0.4) K/mm3 Baso # 0.1 (0.0-0.1) K/mm3 Comprehensive Metabolic Panel 07/03/19 Range/Units 03:00 Sodium 140 (137-145) mmol/L Potassium 4.0 (3.6-5.0) mmol/L Chloride 109.6 H (98-107) mmol/L Carbon Dioxide 19 L (22-30) mmol/L BUN 10 (7-17) mg/dL Creatinine 0.7 (0.7-1.2) mg/dL Glucose 77 (65-100) mg/dL Calcium 8.4 (8.4-10.2) mg/dL - Imaging and Cardiology Echo: pending EKG interpretations - Telemetry EKG Rhythm: Sinus Rhythm Chamber hypertrophy or enlargement: left atrial enlargement Assessment and Plan Ms. Valles is a 44 y/o female admitted with shortness of breath. Echocardiogram is pending. Further recommendations pending results. Continue current management for now. The patient has been seen in conjunction with Dr. Atkins, who agrees with the assessment and plan. - Patient Problems (1) CHF (congestive heart failure) Current Visit: Yes Status: Suspected Qualifiers: Heart failure type: unspecified Heart failure chronicity: acute Qualified Code(s): I50.9 - Heart failure, unspecified (2) Pulmonary edema Current Visit: Yes Status: Acute Qualifiers: Chronicity: acute Qualified Code(s): J81.0 - Acute pulmonary edema (3) 38 weeks gestation of Current Visit: No Status: Acute (4) AMA (advanced maternal age) multigravida 35+ Current Visit: No Status: Acute Qualifiers: Trimester: third trimester Qualified Code(s): O09.523 - Supervision of elderly multigravida, third trimester (5) Delivery normal Current Visit: No Status: Acute (6) Gestational hypertension without significant proteinuria in third trimester Current Visit: No Status: Acute
[2019-07-03] MEDS: ASPIRIN 81 MG TAB CHEW PO SCH (12:14)
[2019-07-03 14:14] LABS: Creatine Kinase MB 1.9 ng/mL (0.0-4.0)
[2019-07-03] MEDS: FUROSEMIDE 40 MG/4 ML INJ IV SCH (17:28)
--- NOTE | 2019-07-03 17:52 | Event Note ---
Date: 07/03/19 44-year-old woman status post vaginal delivery, discharged from the hospital yesterday --Possible cardiomyopathy: Continue diuretics, input output monitoring Low-sodium diet, fluid restriction Cardiology following Follow-up echocardiogram and EF Disposition; discharged when medically stable
[2019-07-03] MEDS: ACETAMINOPHEN 325 MG TAB PO PRN (19:50)
[2019-07-04 05:18] LABS: Basophils % (Auto) 0.5 % (0.0-1.8); Eosinophils # (Auto) 0.3 K/mm3 (0.0-0.4); Eosinophils % (Auto) 3.1 % (0.0-4.3); Hematocrit 30.8 % (30.3-42.9); Hemoglobin 10.2 gm/dl (10.1-14.3); Lymphocytes # (Auto) 0.9 K/mm3 (1.2-5.4); Lymphocytes % (Auto) 9.8 % (13.4-35.0); Mean Corpuscular HGB Conc 33 % (30-34); Mean Corpuscular Volume 86 fl (79-97); Monocytes # (Auto) 0.5 K/mm3 (0.0-0.8); Monocytes % (Auto) 5.6 % (0.0-7.3); Platelet Count 240 K/mm3 (140-440); Red Blood Count 3.59 M/mm3 (3.65-5.03); Red Cell Distribution Width 14.9 % (13.2-15.2)
[2019-07-04] MEDS: FUROSEMIDE 40 MG/4 ML INJ IV SCH ×2 (05:38→18:14)
[2019-07-04] MEDS: ACETAMINOPHEN 325 MG TAB PO PRN (05:38)
[2019-07-04 05:40] LABS: BUN/Creatinine Ratio 14; Blood Urea Nitrogen 11 mg/dL (7-17); Calcium 7.7 mg/dL (8.4-10.2); Hemolysis Index 0
--- NOTE | 2019-07-04 09:45 | Progress Note ---
Assessment and Plan Cardiac status is improving. Will obtain f/u CXR in AM. Continue current management for now. The patient has been seen in conjunction with Dr. Ro, who agrees with the assessment and plan. - Patient Problems (1) CHF (congestive heart failure) Current Visit: Yes Status: Acute Qualifiers: Heart failure type: diastolic Heart failure chronicity: acute Qualified Code(s): I50.31 - Acute diastolic (congestive) heart failure (2) Pulmonary edema Current Visit: Yes Status: Acute Qualifiers: Chronicity: acute Qualified Code(s): J81.0 - Acute pulmonary edema (3) 38 weeks gestation of Current Visit: No Status: Acute (4) AMA (advanced maternal age) multigravida 35+ Current Visit: No Status: Acute Qualifiers: Trimester: third trimester Qualified Code(s): O09.523 - Supervision of elderly multigravida, third trimester (5) Delivery normal Current Visit: No Status: Acute (6) Gestational hypertension without significant proteinuria in third trimester Current Visit: No Status: Acute (7) Pulmonary hypertension Current Visit: Yes Status: Acute Subjective Date of service: 07/04/19 Interval history: The patient is lying in bed in NAD. She still c/o some SOB, but reports it is improved. She also states she is diuresing well; however, no significant UOP recorded. SR in 90s on telemetry. Trace edema to BLE noted. Echocardiogram reviewed: EF 50 to 55 percent, LV diastolic filling pattern is restrictive, LA moderately dilated, RA mildly dilated, mild MR, mild to moderate TR, minimal pericardial effusion, RVSP of 60 mm Hg (moderate phtn). Objective Last Vital Signs Temp 99.0 F 07/04/19 03:00 Pulse 93 H 07/04/19 04:00 Resp 18 07/04/19 05:38 BP 147/72 07/04/19 03:00 Pulse Ox 98 07/04/19 08:30 - Physical Examination General: No Apparent Distress HEENT: Positive: PERRL Neck: Positive: neck supple Cardiac: Positive: Reg Rate and Rhythm Lungs: Positive: Normal Exam Neuro: Positive: Grossly Intact Abdomen: Positive: Unremarkable /Rectal: Other (deferred) Skin: Positive: Clear Musculoskeletal: Normal Range of Motion Extremities: Present: edema (trace to BLE) - Labs and Meds Cardiac Enzymes 07/03/19 Range/Units 12:42 CK-MB (CK-2) 1.9 (0.0-4.0) ng/mL CBC 07/04/19 Range/Units 04:04 WBC 9.5 (4.5-11.0) K/mm3 RBC 3.59 L (3.65-5.03) M/mm3 Hgb 10.2 (10.1-14.3) gm/dl Hct 30.8 (30.3-42.9) % Plt Count 240 (140-440) K/mm3 Lymph # 0.9 L (1.2-5.4) K/mm3 [place] # 0.5 (0.0-0.8) K/mm3 Eos # 0.3 (0.0-0.4) K/mm3 Baso # 0.0 (0.0-0.1) K/mm3 Comprehensive Metabolic Panel 07/04/19 Range/Units 04:04 Sodium 140 (137-145) mmol/L Potassium 3.6 (3.6-5.0) mmol/L Chloride 103.8 (98-107) mmol/L Carbon Dioxide 22 (22-30) mmol/L BUN 11 (7-17) mg/dL Creatinine 0.8 (0.7-1.2) mg/dL Glucose 83 (65-100) mg/dL Calcium 7.7 L (8.4-10.2) mg/dL - Imaging and Cardiology Echo: pending, report reviewed (06/2019: EF 50-55%, restrictive LV diastolic filling, mildly dilated RA, mod dilated LA, mild MR, mild to mod TR, minimal pericardial effusion, mod phtn with RVSP of 60) Chamber hypertrophy or enlargement: left atrial enlargement
[2019-07-04] MEDS: ASPIRIN 81 MG TAB CHEW PO SCH (09:56)
--- NOTE | 2019-07-04 14:54 | Progress Note ---
Assessment and Plan /Acute CHF with flash pulmonary edema - Likely new onset most likely cardiomyopathy Continue to Diurese with IV Lasix, started on aspirin Negative cardiac enzymes, preserved EF on echo, consulted cardiology Blood pressure will not tolerate beta-radha, BLAIRE inhibitor /AMA (advanced maternal age) multigravida 35+ - Status post recent normal delivery -EXTRUDER TENDER following /History of Gestational hypertension without significant proteinuria in third trimester - BP now stable DVT prophylaxis, Lovenox Subjective Date of service: 07/04/19 Interval history: Patient seen and examined. Medical records and medication list reviewed. No acute event overnight noted by the RN. Patient still complaining of difficulty breathing. Patient is tolerating diet. Discussed plan of care at bedside with patient. Denies any chest pain Objective - Constitutional Vitals: Vital Signs - 12hr 07/04/19 07/04/19 07/04/19 03:00 04:00 05:38 Temperature 99.0 F Pulse Rate 93 H 93 H Respiratory 18 18 Rate Blood Pressure 147/72 O2 Sat by Pulse 96 Oximetry 07/04/19 08:30 Temperature Pulse Rate Respiratory Rate Blood Pressure O2 Sat by Pulse 98 Oximetry General appearance: Present: no acute distress, obese - EENT Eyes: PERRL, EOM intact ENT: hearing intact, clear oral mucosa Ears: bilateral: normal - Neck Neck: supple, normal ROM - Respiratory Respiratory effort: normal Respiratory: bilateral: rhonchi - Cardiovascular Rhythm: regular Heart Sounds: Present: S1 & S2. Absent: gallop, rub Extremities: pulses intact, No edema, normal color, Full ROM - Gastrointestinal General gastrointestinal: Present: soft, non-tender, non-distended, normal bowel sounds - Integumentary Integumentary: clear, warm, dry - Musculoskeletal Musculoskeletal: 1, strength equal bilaterally - Neurologic Neurologic: moves all extremities - Psychiatric Psychiatric: memory intact, appropriate mood/affect, intact judgment & insight - Labs CBC & Chem 7: 07/05/19 05:51 07/04/19 04:04 Labs: Abnormal lab results 07/04/19 07/04/19 Range/Units 04:04 04:04 RBC 3.59 L (3.65-5.03) M/mm3 Lymph % (Auto) 9.8 L (13.4-35.0) % Lymph # 0.9 L (1.2-5.4) K/mm3 Seg Neutrophils % 81.0 H (40.0-70.0) % Calcium 7.7 L (8.4-10.2) mg/dL Magnesium 1.60 L (1.7-2.3) mg/dL
[2019-07-05] MEDS: FUROSEMIDE 40 MG/4 ML INJ IV SCH ×2 (06:23→17:20)
[2019-07-05 06:29] LABS: Hematocrit 32.1 % (30.3-42.9); Hemoglobin 10.6 gm/dl (10.1-14.3)
--- NOTE | 2019-07-05 07:54 | XRay Report ---
CHEST 1 VIEW INDICATION: evaluate pulmonary edema. COMPARISON: 07/03/2019 FINDINGS: SUPPORT DEVICES: None. HEART / MEDIASTINUM: No significant abnormality. LUNGS / PLEURA: Persistent diffuse interstitial and patchy airspace process ADDITIONAL FINDINGS: IMPRESSION: 1. No interval change as compared to previous exam, pulmonary edema is a concern Signer Name: Tank Stroud MD Signed: 07/05/2019 7:49 AM Workstation Name: [id number]
[2019-07-05] MEDS: ASPIRIN 81 MG TAB CHEW PO SCH (10:24)
--- NOTE | 2019-07-05 11:58 | Event Note ---
Date: 07/05/19 OBGYN Social visit Questions anwered. Support offered.
--- NOTE | 2019-07-05 14:52 | Progress Note ---
Assessment and Plan /Acute CHFpEF with flash pulmonary edema, improving - Likely new onset most likely cardiomyopathy - Continue to Diurese with IV Lasix, cont on aspirin - Negative cardiac enzymes, preserved EF on echo, consulted cardiology - not on beta-radha, BLAIRE inhibitor as Blood pressure will not tolerate /AMA (advanced maternal age) multigravida 35+ - Status post recent normal delivery -RUG RENOVATOR following /History of Gestational hypertension without significant proteinuria in third trimester - BP now stable DVT prophylaxis, Lovenox Subjective Date of service: 07/05/19 Interval history: Patient seen and examined. Medical records and medication list reviewed. No acute event overnight noted by the RN. Patient difficulty breathing improved. Patient is tolerating diet. Discussed plan of care at bedside with patient. Denies any chest pain Objective - Exam Narrative Exam: General appearance: Present: no acute distress, obese - EENT Eyes: PERRL, EOM intact ENT: hearing intact, clear oral mucosa Ears: bilateral: normal - Neck Neck: supple, normal ROM - Respiratory Respiratory effort: normal Respiratory: bilateral: no rhonchi - Cardiovascular Rhythm: regular Heart Sounds: Present: S1 & S2. Absent: gallop, rub Extremities: pulses intact, No edema, normal color, Full ROM - Gastrointestinal General gastrointestinal: Present: soft, non-tender, non-distended, normal bowel sounds - Integumentary Integumentary: clear, warm, dry - Musculoskeletal Musculoskeletal: 1, strength equal bilaterally - Neurologic Neurologic: moves all extremities - Psychiatric Psychiatric: memory intact, appropriate mood/affect, intact judgment & insight - Constitutional Vitals: Vital Signs - 12hr 07/05/19 07/05/19 07/05/19 03:45 04:33 07:48 Temperature 98.6 F 98.2 F Pulse Rate 77 74 77 Respiratory 16 18 Rate Blood Pressure 119/53 127/57 O2 Sat by Pulse 95 96 Oximetry 07/05/19 07/05/19 07/05/19 08:11 10:00 12:22 Temperature Pulse Rate 80 Respiratory Rate Blood Pressure O2 Sat by Pulse 95 95 Oximetry 07/05/19 12:45 Temperature 98.3 F Pulse Rate 81 Respiratory 18 Rate Blood Pressure 122/65 O2 Sat by Pulse 98 Oximetry - Labs CBC & Chem 7: 07/05/19 05:51 07/06/19 08:21
--- NOTE | 2019-07-05 15:09 | Progress Note ---
Assessment and Plan Patient with an episode of "flash pulmonary edema,post ,presently getting better,echo showed preserved LVEF with moderate pulmonary h ypertension.Clinically getting better with diuretics,continue same.Will consider repeat echo in next few weeks as OP.Will get f/u CXR in AM. Subjective Date of service: 07/05/19 Interval history: Shortnesss breath much better,no orthopnea,however,mild SOB with exertion.CXR shows persistent pulmonary edema pattern. Objective Vital Signs Temp Pulse Resp BP Pulse Ox 07/05/19 12:45 98.3 F 81 18 122/65 98 07/05/19 12:22 80 07/05/19 10:00 95 07/05/19 08:11 95 07/05/19 07:48 98.2 F 77 18 127/57 96 07/05/19 04:33 98.6 F 74 16 119/53 95 07/05/19 03:45 77 07/04/19 23:25 88 07/04/19 23:14 98.7 F 94 H 18 121/62 94 07/04/19 21:50 95 07/04/19 20:00 89 07/04/19 19:30 98.8 F 98 H 18 141/84 95 - Physical Examination General: No Apparent Distress HEENT: Positive: PERRL Neck: Positive: neck supple Cardiac: Positive: Regular Rhythm, S4 Neuro: Positive: Grossly Intact Abdomen: Positive: Unremarkable /Rectal: Other (deferred) Skin: Positive: Clear Musculoskeletal: Normal Range of Motion Extremities: Absent: edema - Labs and Meds CBC 07/05/19 Range/Units 05:51 Hgb 10.6 (10.1-14.3) gm/dl Hct 32.1 (30.3-42.9) % Plt Count 257 (140-440) K/mm3 - Imaging and Cardiology Echo: pending, report reviewed (06/2019: EF 50-55%, restrictive LV diastolic filling, mildly dilated RA, mod dilated LA, mild MR, mild to mod TR, minimal pericardial effusion, mod phtn with RVSP of 60) Chamber hypertrophy or enlargement: left atrial enlargement
--- NOTE | 2019-07-06 07:51 | XRay Report ---
CHEST 2 VIEWS 0732 hours INDICATION: shortness of breath,f/u of pulmonary edema.. COMPARISON: 07/05/2019 at 0719 hours FINDINGS: Support devices: None. Heart: Mild cardiomegaly has resolved. Heart size is normal. Lungs/pleura: Single bilateral pulmonary edema has resolved. The lungs are clear. No pleural effusio n or pneumothorax is identified. Additional findings: None. IMPRESSION: Essentially normal chest x-ray. Mild CHF or volume overload has resolved. Signer Name: Dick Ely Jr, MD Signed: 07/06/2019 7:47 AM Workstation Name: [id number]
[2019-07-06 09:00] VITALS: BP 132/86
[2019-07-06 09:07] LABS: BUN/Creatinine Ratio 21; Blood Urea Nitrogen 15 mg/dL (7-17); Calcium 8.4 mg/dL (8.4-10.2); Hemolysis Index 11
[2019-07-06] MEDS: ASPIRIN 81 MG TAB CHEW PO SCH (11:39)
--- NOTE | 2019-07-06 15:01 | Discharge Summary ---
Providers - Providers Date of Admission: 07/03/19 04:57 Date of discharge: 07/06/19 Attending physician: RADHA WARD 07/03/19 06:13 Consult to Physician [CONS] Routine Comment: Consulting Provider: MARTHA BELTRAN Physician Instructions: Reason For Exam: chf Primary care physician: ASHLEY GILMORE Hospitalization Condition: Stable Pertinent studies: CTA chest CXR 2d echo Hospital course: Discharge diagnosis: /Post purtam flash pulmonary edema due to volume overload, resolved - CHF ruled out - Diuresed with IV Lasix, placed on aspirin - Negative cardiac enzymes, preserved EF on echo, consulted cardiology - not on beta-radha, BLAIRE inhibitor as Blood pressure will not tolerate - transitioned to po lasix before discharge /AMA (advanced maternal age) multigravida 35+ - Status post recent normal delivery -HOUSE SUPERVISOR following /History of Gestational hypertension without significant proteinuria in third trimester - BP now stable /hypomagnesemia, repleted DVT prophylaxis, Lovenox Disposition: DC-01 TO HOME OR SELFCARE Time spent for discharge: 34 minutes Core Measure Documentation - Palliative Care Palliative Care/ Comfort Measures: Not Applicable - Core Measures Any of the following diagnoses?: heart failure - Heart Failure Discharge Requirements BLAIRE/ARB for LVSD if EF <40%: Not Applicable Beta radha at discharge: No Reason for no beta radha on DC: Hypotension Exam - Physical Exam Narrative exam: General appearance: Present: no acute distress, obese - EENT Eyes: PERRL, EOM intact ENT: hearing intact, clear oral mucosa Ears: bilateral: normal - Neck Neck: supple, normal ROM - Respiratory Respiratory effort: normal Respiratory: bilateral: no rhonchi - Cardiovascular Rhythm: regular Heart Sounds: Present: S1 & S2. Absent: gallop, rub Extremities: pulses intact, No edema, normal color, Full ROM - Gastrointestinal General gastrointestinal: Present: soft, non-tender, non-distended, normal bowel sounds - Integumentary Integumentary: clear, warm, dry - Musculoskeletal Musculoskeletal: 1, strength equal bilaterally - Neurologic Neurologic: moves all extremities - Psychiatric Psychiatric: memory intact, appropriate mood/affect, intact judgment & insight - Constitutional Vitals: Temp Pulse Resp BP Pulse Ox 98.8 F 88 18 132/86 97 07/06/19 08:58 07/06/19 14:00 07/06/19 08:58 07/06/19 08:58 07/06/19 10:00 Plan Activity: advance as tolerated Weight Bearing Status: Weight Bear as Tolerated Diet: low fat, low salt Follow up with: PRIMARY CARE, [Referring] - 3-5 Days ARIELLE NAVARRO MD [Staff Physician] - 7 Days Prescriptions: Aspirin [Aspirin BABY CHEW TAB] 81 mg PO QDAY #30 tab.chew Furosemide [Lasix] 20 mg PO QDAY #30 tablet
--- NOTE | 2019-07-06 16:25 | Progress Note ---
Assessment and Plan Post flash pulmonary edema secondary to volume overload Resolved. Echo reviewed - EF 50-55%, restrictive diastolic filling, LA mod dilated, RA mildly dilated, mild MR, mild to mod TR, mod pulm HTN with RVSP 60mmHg. History of Gestational hypertension without significant proteinuria in third trimester Pulmonary HTN Chest CTA negative for PE. Currently stable cardiac status. Pt may discharge home from cardiology standpoint. Recommend follow up in our office with Dr. Ro within 1-2 weeks of discharge ([phone]). The patient has been seen in conjunction with Dr. Ocampo who agrees with the assessment and plan of care. Subjective Date of service: 07/06/19 Principal diagnosis: dyspnea Interval history: pt ambulating around room without difficulty, no current complaints. in SR on tele. Objective Last Vital Signs Temp 98.8 F 07/06/19 08:58 Pulse 88 07/06/19 14:00 Resp 18 07/06/19 08:58 BP 132/86 07/06/19 08:58 Pulse Ox 97 07/06/19 10:00 - Physical Examination General: No Apparent Distress HEENT: Positive: PERRL Neck: Positive: neck supple Cardiac: Positive: Reg Rate and Rhythm, S1/S2 Lungs: Positive: Decreased Breath Sounds Neuro: Positive: Grossly Intact Abdomen: Positive: Unremarkable /Rectal: Other (deferred) Skin: Positive: Clear Musculoskeletal: Normal Range of Motion Extremities: Absent: edema - Labs and Meds Comprehensive Metabolic Panel 07/06/19 Range/Units 08:21 Sodium 141 (137-145) mmol/L Potassium 3.8 (3.6-5.0) mmol/L Chloride 103.0 (98-107) mmol/L Carbon Dioxide 23 (22-30) mmol/L BUN 15 (7-17) mg/dL Creatinine 0.7 (0.7-1.2) mg/dL Glucose 87 (65-100) mg/dL Calcium 8.4 (8.4-10.2) mg/dL - Imaging and Cardiology Echo: pending, report reviewed (06/2019: EF 50-55%, restrictive LV diastolic filling, mildly dilated RA, mod dilated LA, mild MR, mild to mod TR, minimal pericardial effusion, mod phtn with RVSP of 60) Chamber hypertrophy or enlargement: left atrial enlargement
== END 2019-07-06 16:39 | disposition home or self-care (01) | DRG 776 ==
LOC: ED 02:24 → 4A 04:57
PROVIDERS: ADMIT Internal Medicine; ATTEND Internal Medicine
DX: O14.05 Mild to moderate pre-eclampsia, complicating the puerperium (principal); O99.43 Diseases of the circulatory system complicating the puerperium; O99.285 Endocrine, nutritional and metabolic diseases complicating the puerperium; I27.20 Pulmonary hypertension, unspecified; I08.1 Rheumatic disorders of both mitral and tricuspid valves; E83.42 Hypomagnesemia
CPT/HCPCS: 36415; 71045; 71046; 71275; 80048; 82550; 82553; 83735; 83880; 84100; 84484; 85014; 85018; 85025; 85049; 85610; 85730; 93005; 93010; 93306; 94760; 96365; 96375; G0378; J1644; J1940; J3475; Q9967

== ENCOUNTER 2020-10-14 10:12 | Outpatient (CLI) | payer BC ==
--- NOTE | 2020-10-14 11:35 | Mammography Report ---
DIGITAL SCREENING MAMMOGRAM WITH CAD, 10/14/2020 CLINICAL INFORMATION / INDICATION: Routine screening mammography. TECHNIQUE: Digital bilateral 2D mammography was obtained in the craniocaudal and mediolateral obliqu e projections. This examination was interpreted with the benefit of Computer-Aided Detection analysis . COMPARISON: None available. FINDINGS: Breast Density: The breasts are heterogeneously dense, which may obscure small masses. No dominant mass, suspicious calcifications, or architectural distortion in the left breast. There is an indeterminate round nodular density located in the 3:00 position anterior depth of the right shari st measuring 1.1 x 1.1 cm . Another indeterminate nodular density in the upper outer right breast ant erior/middle depth measures 1.2 cm. No other significant abnormality of the right breast. Retropectoral silicone implants are present. There are bilateral benign-appearing calcifications. IMPRESSION: Indeterminate right breast nodular densities as above. A limited right breast ultrasound is recommended for further evaluation. Follow up recommendation: Routine yearly BI-RADS Category 0: Incomplete. Needs additional imaging evaluation and/or prior mammograms for will justin. A "normal" or negative report should not discourage follow up or biopsy of a clinically significant f inding. A written summary of these findings will be mailed to the patient. The patient will be entered into a mammography reporting system which will generate a reminder letter for the patient's next appointmen t at the appropriate interval. The [employer] recommends yearly mammograms starting at age 40 and continuing as l nhi as a woman is in good health. Breast MRI is recommended for women with an approximate 20-25% or greater lifetime risk of breast cancer, including women with a strong family history of breast or ova bernabe cancer or who have been treated for Hodgkin's disease. Signer Name: Gray Gay MD Signed: 10/14/2020 11:31 AM Workstation Name: [email or web address]
== END 2020-10-14 10:13 | disposition home or self-care (01) ==
LOC: MAMMO 10:12
PROVIDERS: ATTEND Obstetrics & Gynecology
DX: Z12.31 Encounter for screening mammogram for malignant neoplasm of breast (principal)
CPT/HCPCS: 77067

== ENCOUNTER 2020-10-23 10:34 | Outpatient (CLI) | payer BC ==
--- NOTE | 2020-10-23 12:41 | Ultrasound Report ---
ULTRASOUND BREAST RIGHT LIMITED, 10/23/2020 CLINICAL INFORMATION / INDICATION: ABNORMAL MAMMOGRAM. Patient presents as a callback from screening mammogram for further evaluation of nodular densities in the right breast. TECHNIQUE: Targeted ultrasound evaluation was performed of the area of interest. COMPARISON: Prior mammogram 10/14/2020 FINDINGS: Corresponding with the nodular densities seen on recent mammogram, there is an oval circumscribed hyp oechoic mass in the right breast 3:00 subareolar position measuring up to 10 x 6 x 8 mm, and an oval circumscribed hypoechoic mass in the 1:00 position located 4 cm from the nipple measuring up to 12 x 11 x 5 mm. The masses are parallel. No internal vascularity is demonstrated. There is an incidental 4 mm hypoechoic circumscribed nodule in the 10:00 subareolar position. IMPRESSION: 1. 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 Recommend right breast ultr asound in 6 months to ensure stability. Follow up recommendation: Short term follow up in 6 months. BI-RADS Category 3: Probably Benign. Followup in 6 months. A normal or "negative" report should not preclude biopsy or follow-up of a clinically suspicious find ing. Signer Name: Yaima Fischer MD Signed: 10/23/2020 11:43 AM Workstation Name: [email or web address]
== END 2020-10-23 10:35 | disposition home or self-care (01) ==
LOC: US 10:34
PROVIDERS: ATTEND Nurse Practitioner Women's Health
DX: N63.12 Unspecified lump in the right breast, upper inner quadrant (principal); N63.11 Unspecified lump in the right breast, upper outer quadrant

== ENCOUNTER 2021-10-29 13:30 | Outpatient (CLI) | payer BC ==
--- NOTE | 2021-10-30 18:05 | Mammography Report ---
DIGITAL SCREENING MAMMOGRAM WITH TOMOSYNTHESIS WITH CAD, 10/29/2021 CLINICAL INFORMATION / INDICATION: Screening TECHNIQUE: Digital bilateral 2D and 3D mammography with tomosynthesis was obtained in the craniocaud al and mediolateral oblique projections. Computer-Aided Detection (CAD) analysis was used for interp retation of this study. COMPARISON: 10/14/2020 FINDINGS: Breast Density: The breasts are heterogeneously dense, which may obscure small masses. No dominant mass, suspicious calcifications, or architectural distortion in either breast. Bilateral implants are again seen. Benign-appearing nodularity and calcifications are again noted. IMPRESSION: No mammographic evidence of malignancy. Follow up recommendation: Routine yearly BI-RADS Category 2: BENIGN. A "normal" or negative report should not discourage follow up or biopsy of a clinically significant f inding. A written summary of these findings will be mailed to the patient. The patient will be entered into a mammography reporting system which will generate a reminder letter for the patient's next appointmen t at the appropriate interval. The [employer] recommends yearly mammograms starting at age 40 and continuing as l nhi as a woman is in good health. Breast MRI is recommended for women with an approximate 20-25% or greater lifetime risk of breast cancer, including women with a strong family history of breast or ova bernabe cancer or who have been treated for Hodgkin's disease. Signer Name: Shabbir Feliciano MD Signed: 10/30/2021 6:01 PM Workstation Name: [id number]
== END 2021-10-29 13:31 | disposition home or self-care (01) ==
LOC: SPVWC 13:30
PROVIDERS: ATTEND Obstetrics & Gynecology
DX: Z12.31 Encounter for screening mammogram for malignant neoplasm of breast (principal)
CPT/HCPCS: 77063; 77067